=== PATIENT | male | born 1980 | race Caucasian/White ===

== ENCOUNTER 2020-03-25 06:00 | Outpatient (RCR) | payer MEDICARE, SELFPAY | END 2020-04-24 23:59 | disposition home or self-care (01) | LOC: MOT 06:00 | PROVIDERS: PCP Family Medicine; Referring Provider Family Medicine; Visit Provider Family Medicine | DX: G82.20 Paraplegia, unspecified (principal) | CPT/HCPCS: 97166 ==

== ENCOUNTER 2021-05-01 17:58 | Observation (INO) | payer MEDICARE, SELFPAY ==
[2021-05-01] VITALS (8 sets, daily range): BP systolic 109–162; BP diastolic 78–92; PULSE 99–125; RESP 16–26; TEMP 36.6; O2SAT 98–100; BMI 27.3
--- NOTE | 2021-05-01 18:55 | W.ED.COVID ---
Documented by User: [email or web address] Tee 05/01/21 23:30 HPI - COVID General: Chief Complaint: COVID symptoms Stated Complaint: covid expousre, feeling aweful Time Seen by Provider: 05/01/21 18:18 Source: patient Mode of arrival: wheelchair Limitations: no limitations Triage information: No fever, cough or shortness of breath. Exposure to COVID + person last 14 days History of Present Illness: HPI Narrative: Patient is a very nice 41-year-old male who presents to the ED today with concerns of COVID exposure and symptoms. Patient tells me about 2 weeks ago he was around his ex- who was positive for COVID and symptomatic. He states 2 days later he began having symptoms of nasal congestion, rhinorrhea, mild cough, and low-grade fevers. Patient states he felt like he was starting to improve but over the last 48 hours has felt significantly worse. He reports he is on day 11 of symptoms. He is complaining of severe muscle aches. He has had severe nausea and dry heaving. He states anytime he tries to eat he subsequently has diarrhea. Patient is a paraplegic and states it is obviously difficult to get to and from the bathroom thus he has stopped eating to help prevent the diarrhea. He feels very weak and dehydrated. Patient has noticed he feels short of breath with minimal exertion. He does not complain of any shortness of breath at rest. Patient is a type I diabetic. History of HTN. MD complaint: reported COVID exposure and has COVID symptoms Prior covid testing: no COVID 19 common symptoms: positive fever(s), non-productive cough, dyspnea (with exertion), body aches, nasal congestion, nausea, vomiting (dry heaving) and diarrhea; negative chills, headache(s) or throat pain COVID 19 other sytmptoms: negative chest pain Onset (ago): day(s) Severity: moderate Pertinent comorbid conditions: diabetes and hypertension COVID Results: SARS-CoV-2 Antigen (Rapid) Negative (Negative) 05/01/21 19:07 05/01/21 Nasal/Oral Coronavirus 2019 PCR Pending 05/01/21 21:25 05/01/21 Review of Systems Const: Reports: fever(s), body aches and change in appetite; Denies: chills Eyes: Denies: change in vision ENMT: Reports: nasal congestion; Denies: throat pain, odynophagia or ear or mastoid pain Card: Reports: dyspnea on exertion; Denies: chest pain, palpitations, irregular heart rhythm, edema, swelling of feet/ankles, lightheadedness, syncope or pre-syncope Resp: Reports: dyspnea (with exertion) and non-productive cough; Denies: wheezing or hemoptysis GI: Reports: nausea, vomiting (dry heaving) and diarrhea; Denies: abdominal pain Musc: Reports: other (reports muscle pains); Denies: neck pain, back pain, extremity pain or joint pain Skin/Breast: Denies: rash Neuro: Denies: headache(s) PFSH ED PFSH: Medical History Aortic arch dissection Physical Exam Const: COMMON NORMALS: no acute distress, patient oriented x3, no limitations and alert GENERAL APPEARANCE: cooperative ORIENTATION/CONSCIOUSNESS: Yes awake, Yes oriented to person, Yes oriented to place and Yes oriented to time HENMT: COMMON NORMALS: normocephalic and atraumatic HEAD & SCALP: normocephalic and atraumatic Resp: COMMON NORMALS: normal respiratory effort and clear to auscultation bilaterally AUSCULTATION: clear to auscultation bilaterally Cardio: COMMON NORMALS: regular rhythm RATE: tachycardic RHYTHM: regular rhythm Neuro: RIK COMA SCALE: document GCS findings [place] coma scale eye opening: Spontaneous [place] coma scale verbal response: Orientated Rik coma scale motor response: Obey commands Rik coma scale total score: 15 COMMON NORMALS: patient oriented x3 SENSORIUM/ORIENTATION: Yes alert, Yes oriented to person, Yes oriented to place and Yes oriented to time OTHER: LE paraplegic Skin: COMMON NORMALS: no rashes or lesions noted GENERAL SKIN EXAM: no rashes or lesions noted TRAUMA: no lacerations or abrasions Course Consultations: Consultation #1: Dr. Sena-acceptsophie admission to ICU Vital Signs: Vital signs: Vital Signs Temperature 97.9 F 05/01/21 18:05 Pulse Rate 112 H 05/01/21 19:14 Respiratory Rate 18 05/01/21 20:50 Blood Pressure 143/92 05/01/21 19:11 Pulse Oximetry 100 05/01/21 19:11 MDM - COVID MDM Narrative: Medical decision making narrative: Patient's rapid is COVID but this is not surprising given he is on day 11 of symptoms. PCR pending. I still suspect this given his positive exposure. CXR shows bibasilar pneumonitis. CTA (ordered secondary to elevated d dimer is negative for PE but appearance is suspicious for COVID infection). Unfortunately secondary to the vomiting/diarrhea/not eating he is now in DKA. Glucose 190s-230s. Bicarb of 11. Gap of 30.5. pH of 7.2. Positive serum ketones. Will place on insulin drip/fluids and will admit to hospitalist. Lab Data: Labs: Lab Results 05/01/21 05/01/21 05/01/21 19:07 19:07 19:07 WBC 3.8 10^3/uL L 10^ 3/uL (4.0-10.0) RBC 5.11 10^6/uL 10^6 /uL (4.1-5.3) Hgb 16.2 g/dL g/dL (11.7-16.6) Hct 48.1 % % (42.0-52.0) MCV 94.1 fl H fl (80-94) MCH 31.7 pg pg (28.0-34.0) MCHC 33.7 g/dL g/dL (30.0-36.0) RDW 13.1 % % (12.1-15.1) Plt Count 167 10^3/cmm 10^3 /cmm (130-400) MPV 10.5 fL H fL (7.4-10.4) Neut % (Auto) 72.1 % % Lymph % (Auto) 18.8 % % Jewell % (Auto) 8.5 % % Eos % (Auto) 0.3 % % Baso % (Auto) 0.0 % % Neut # (Auto) 2.73 10^3/uL 10^3 /uL (1.8-7.7) Lymph # (Auto) 0.7 10^3/uL L 10^ 3/uL (0.8-4.8) Jewell # (Auto) 0.3 10^3/uL 10^3/ uL (0.2-0.9) Eos # (Auto) 0.0 10^3/uL 10^3/ uL (0.0-0.8) Baso # (Auto) 0.0 10^3/uL 10^3/ uL (0.0-0.1) Nucleated RBC % (a uto) 0 % % Nucleated RBCs # 0.0 /100WBC /100W BC D-Dimer 1.01 ug/mIFEU H u g/mIFEU (0-0.59) Specimen Type Sample Site ABG pH ABG pCO2 ABG pO2 ABG HCO3 ABG O2 Saturation ABG Base Excess Blane Test A-a O2 Gradient Hematocrit Hgb O2 Saturation Carboxyhemoglobin Methemoglobin Total Hemoglobin Ionized Calcium O2 Delivery Device FiO2 Senior Business Development Manager ID Sodium 134 mmol/L L mmol /L (136-145) Potassium 4.5 mmol/L mmol/L (3.5-5.1) Chloride 97 mmol/L L mmol/ L (98-107) Carbon Dioxide 11 mmol/L L mmol/ L (22-29) Anion Gap 30.5 H (5-19) BUN 11 mg/dL mg/dL (6-20) Creatinine 0.8 mg/dL mg/dL (0.7-1.2) GFR Calculation 107.1 mL/min mL/m in (90-130) Glucose 194 mg/dL H mg/dL (65-115) POC Glucose Calculated Osmolal ity 283 mOsm/kg L mOs m/kg (285-295) Lactic Acid Calcium 9.4 mg/dL mg/dL (8.5-10.5) Total Bilirubin 0.7 mg/dL mg/dL (0.15-1.2) AST 18 U/L U/L (0-40) ALT 15 U/L U/L (0-41) Alkaline Phosphata se 84 IU/L IU/L (40-130) Creatine Kinase 85 U/L U/L (39-308) C-Reactive Protein 6.0 mg/L H mg/L (0.0-4.9) Total Protein 8.0 g/dL g/dL (6.6-8.7) Albumin 4.6 g/dL g/dL (3.5-5.2) Globulin 3.4 g/dL g/dL (1.3-4.6) Procalcitonin 0.10 ng/mL ng/mL (0-0.5) Serum Ketones SARS-CoV-2 Ag (Rap id) 05/01/21 05/01/21 05/01/21 19:07 19:07 19:07 WBC RBC Hgb Hct MCV MCH MCHC RDW Plt Count MPV Neut % (Auto) Lymph % (Auto) Jewell % (Auto) Eos % (Auto) Baso % (Auto) Neut # (Auto) Lymph # (Auto) Jewell # (Auto) Eos # (Auto) Baso # (Auto) Nucleated RBC % (a uto) Nucleated RBCs # D-Dimer Specimen Type Sample Site ABG pH ABG pCO2 ABG pO2 ABG HCO3 ABG O2 Saturation ABG Base Excess Blane Test A-a O2 Gradient Hematocrit Hgb O2 Saturation Carboxyhemoglobin Methemoglobin Total Hemoglobin Ionized Calcium O2 Delivery Device FiO2 Senior Business Development Manager ID Sodium Potassium Chloride Carbon Dioxide Anion Gap BUN Creatinine GFR Calculation Glucose POC Glucose Calculated Osmolal ity Lactic Acid 1.1 mmol/L mmol/L (0.5-2.2) Calcium Total Bilirubin AST ALT Alkaline Phosphata se Creatine Kinase C-Reactive Protein Total Protein Albumin Globulin Procalcitonin Serum Ketones Positive H (Negative) SARS-CoV-2 Ag (Rap id) Negative (Negative) 05/01/21 05/01/21 20:02 21:36 WBC RBC Hgb Hct MCV MCH MCHC RDW Plt Count MPV Neut % (Auto) Lymph % (Auto) Jewell % (Auto) Eos % (Auto) Baso % (Auto) Neut # (Auto) Lymph # (Auto) Jewell # (Auto) Eos # (Auto) Baso # (Auto) Nucleated RBC % (a uto) Nucleated RBCs # D-Dimer Specimen Type Arterial Sample Site Radial, right ABG pH 7.22 L (7.35-7.45) ABG pCO2 19.8 mmHg L* mmHg (35-45) ABG pO2 109.0 mmHg H mmHg (80.0-100.0) ABG HCO3 8.0 mmol/L L mmol /L (22-26) ABG O2 Saturation 97.9 ABG Base Excess -17.4 mmol/L L mm ol/L (-2.0-2.0) Blane Test Pos A-a O2 Gradient 1.9 mmHg L mmHg (5-10) Hematocrit 49.6 % % (42-52) Hgb O2 Saturation 96.9 % % (95-100) Carboxyhemoglobin 0.6 %THgb %THgb (0.4-20.1) Methemoglobin 0.5 % % (0.4-1.5) Total Hemoglobin 16.2 g/dL g/dL (14-18) Ionized Calcium 1.2 mmol/L mmol/L (1.1-1.4) O2 Delivery Device Room air FiO2 21.0 % % Senior Business Development Manager ID [email or web address] Sodium 140.0 mmol/L mmol /L (131-143) Potassium 4.3 mmol/L mmol/L (3.5-5.0) Chloride Carbon Dioxide Anion Gap BUN Creatinine GFR Calculation Glucose 231.0 mg/dL H mg/ dL (70-115) POC Glucose 207 mg/dL H mg/dL (70-110) Calculated Osmolal ity Lactic Acid Calcium Total Bilirubin AST ALT Alkaline Phosphata se Creatine Kinase C-Reactive Protein Total Protein Albumin Globulin Procalcitonin Serum Ketones SARS-CoV-2 Ag (Rap id) Imaging Data: CXR: Radiologist's impression: [employer] [address] XRay Report Signed Patient: Carl Boudreaux Unit #: [id number] : 1980 Age/Sex: 41 / M ADM Date: 05/01/21 Loc: ER Room/Bed: Attending Dr: Ordering Provider/Ordering MD: Evonne Méndez Date of Service: 05/01/21 Procedure(s): XR chest 1V portable [id number] Accession Number(s): [id number] Report Number: [id number] PROCEDURE INFORMATION: Exam: XR Chest Exam date and time: 05/01/2021 6:54 PM Age: 41 years old Clinical indication: Cough and shortness of breath; Additional info: Covid symptoms TECHNIQUE: Imaging protocol: XR of the chest. Views: 1 view. Total images: 1 COMPARISON: No relevant prior studies available. FINDINGS: Lungs: Patches of ground-glass interstitial lung disease in the bilateral lower lobes, right lung more involved than left, raising suspicion for active interstitial pneumonitis. No visible consolidated alveolar airspace disease. Azygos lobe which is a normal anatomical variant. Pleural spaces: No pleural effusion. No pneumothorax. Heart/Mediastinum: Cardiac structures and configuration with mediastinal surgical clips. Cardiac size within normal limits. Bones/joints: Scoliosis. XR/XR chest 1V portable [id number] IMPRESSION: Bibasilar pneumonitis, right lung slightly more involved than left. Radiation Dose CTDIVOL = (mGy): DLP = (mGy-cm) Dictated By: Julian Nolan Signed By: Julian Nolan Signed Date/Time: 05/01/211949 DD/ 53 CTA Chest: Radiologist's impression: [address] [id number] Scan ReportSigned Patient: Carl Boudreaux #: [id number]: 1980Acct#:[id number]/Sex: 41 / MADM Date: 05/01/21Loc: ERRoom/Bed:Attending Dr: Ordering Provider/Ordering MD: Evonne Méndez Date of Service: 05/01/21 Procedure(s): CT angio chest PE prot [id number] Accession Number(s): [id number] Report Number: [id number] PROCEDURE INFORMATION: Exam: CTA Chest With Contrast Exam date and time: 05/01/2021 8:02 PM Age: 41 years old Clinical indication: Abnormal findings; Abnormal diagnostic tests; Elevated d-dimer; Shortness of breath; Prior surgery; Surgery date: 6+ months; Surgery type: Aorta; Patient HX: ? Covid exposure tachy w elev d-dimer; Additional info: Covid symptoms; Tachycardia; Elevated d dimer TECHNIQUE: Imaging protocol: Computed tomographic angiography of the chest with contrast. 3D rendering (Not supervised by radiologist): MIP and/or 3D reconstructed images were created by the technologist. Total images: 842 Radiation optimization: All CT scans at this facility use at least one of these dose optimization techniques: automated exposure control; mA and/or kV adjustment per patient size (includes targeted exams where dose is matched to clinical indication); or iterative reconstruction. Contrast material: OMNI 350; Contrast volume: 63 ml; Contrast route: INTRAVENOUS (IV); COMPARISON: CR XR chest 1V portable [id number] 05/01/2021 8:13 PM RADIATION DOSE METRICS: Total DLP (mGy-cm): 541.2 FINDINGS: Pulmonary arteries: No visible evidence of pulmonary embolism/pulmonary arterial thrombus. Aorta: Mild fusiform aneurysmal dilatation of the ascending thoracic aorta. No visible acute intimal flap or dissection. Thin chronic longitudinal intimal flap thoracic aortic arch. Numerous surgical clips surround the aortic arch. Lungs: Bilateral, predominantly bilateral lower lobe peripheral, patches of ground-glass interstitial lung disease opacification consistent with active interstitial pneumonitis. Overall constellation of findings would be consistent with Covid-19 pneumonitis. Azygos lobe which is a normal anatomical variant. Pleural spaces: No pneumothorax. No pleural effusion. Heart: Cardiac size within normal limits. No visible pericardial effusion. No visible coronary artery disease. Lymph nodes: No definitive evidence of active mediastinal or hilar lymphadenopathy. Bones/joints: No visible active or acute osseous pathology. Scoliotic curvature of the spine. Old left rib fractures. Soft tissues: Unremarkable. CT/CT angio chest PE protcl [id number] IMPRESSION: 1. No visible evidence of pulmonary embolism/pulmonary arterial thrombus. 2. Bilateral, predominantly bilateral lower lobe peripheral, patches of ground-glass interstitial lung disease opacification consistent with active interstitial pneumonitis. Overall constellation of findings would be consistent with Covid-19 pneumonitis. Radiation Dose CTDIVOL = (mGy): DLP = 541.2 (mGy-cm) Dictated By:Elinor Nolan By:Elinor Nolan Date/Time:05/01/21 2154DD/ 01 COVID Results: SARS-CoV-2 Antigen (Rapid) Negative (Negative) 05/01/21 19:07 05/01/21 Nasal/Oral Coronavirus 2019 PCR Pending 05/01/21 21:25 05/01/21 Discharge Plan Discharge Patient Disposition: Admitted As Inpatient Admit Provider: Eliezer Villalobos Clinical Impression: Suspected severe acute respiratory syndrome coronavirus 2 (SARS-CoV-2) infection, Suspected COVID-19 virus infection DKA (diabetic ketoacidosis) Qualifiers: Diabetes mellitus type: type 1 Diabetes mellitus complication detail: without coma Qualified Code(s): E10.10 - Type 1 diabetes mellitus with ketoacidosis without coma Condition: Stable Coding Level of Care Code ED Stonework Supervisor for Chg Fwd Exam Detailed Documented by User: Jonah Pham DO Elvis 05/01/21 23:14 HPI - COVID General: Chief Complaint: COVID symptoms Stated Complaint: covid expousre, feeling aweful Time Seen by Provider: 05/01/21 18:18 COVID Results: SARS-CoV-2 Antigen (Rapid) Negative (Negative) 05/01/21 19:07 05/01/21 Nasal/Oral Coronavirus 2019 PCR Pending 05/01/21 21:25 05/01/21 [facility] ED PFSH: Medical History Aortic arch dissection Course Vital Signs: Vital signs: Vital Signs Temperature 97.9 F 05/01/21 18:05 Pulse Rate 112 H 05/01/21 19:14 Respiratory Rate 18 05/01/21 20:50 Blood Pressure 143/92 05/01/21 19:11 Pulse Oximetry 100 05/01/21 19:11 MDM - COVID MDM Narrative: Medical decision making narrative: This patient was originally seen by Mrs. Menaton?TAO Sloan. I agree with her history, evaluation, and treatment. This patient has diabetic ketoacidosis and is quite dry. He likely has COVID-19 as well, although his respiratory status is not significantly affected. He will go to the ICU on insulin drip with fluid resuscitation. Lab Data: Labs: Lab Results 05/01/21 05/01/21 05/01/21 19:07 19:07 19:07 WBC 3.8 10^3/uL L 10^ 3/uL (4.0-10.0) RBC 5.11 10^6/uL 10^6 /uL (4.1-5.3) Hgb 16.2 g/dL g/dL (11.7-16.6) Hct 48.1 % % (42.0-52.0) MCV 94.1 fl H fl (80-94) MCH 31.7 pg pg (28.0-34.0) MCHC 33.7 g/dL g/dL (30.0-36.0) RDW 13.1 % % (12.1-15.1) Plt Count 167 10^3/cmm 10^3 /cmm (130-400) MPV 10.5 fL H fL (7.4-10.4) Neut % (Auto) 72.1 % % Lymph % (Auto) 18.8 % % Jewell % (Auto) 8.5 % % Eos % (Auto) 0.3 % % Baso % (Auto) 0.0 % % Neut # (Auto) 2.73 10^3/uL 10^3 /uL (1.8-7.7) Lymph # (Auto) 0.7 10^3/uL L 10^ 3/uL (0.8-4.8) Jewell # (Auto) 0.3 10^3/uL 10^3/ uL (0.2-0.9) Eos # (Auto) 0.0 10^3/uL 10^3/ uL (0.0-0.8) Baso # (Auto) 0.0 10^3/uL 10^3/ uL (0.0-0.1) Nucleated RBC % (a uto) 0 % % Nucleated RBCs # 0.0 /100WBC /100W BC D-Dimer 1.01 ug/mIFEU H u g/mIFEU (0-0.59) Specimen Type Sample Site ABG pH ABG pCO2 ABG pO2 ABG HCO3 ABG O2 Saturation ABG Base Excess Blane Test A-a O2 Gradient Hematocrit Hgb O2 Saturation Carboxyhemoglobin Methemoglobin Total Hemoglobin Ionized Calcium O2 Delivery Device FiO2 Senior Business Development Manager ID Sodium 134 mmol/L L mmol /L (136-145) Potassium 4.5 mmol/L mmol/L (3.5-5.1) Chloride 97 mmol/L L mmol/ L (98-107) Carbon Dioxide 11 mmol/L L mmol/ L (22-29) Anion Gap 30.5 H (5-19) BUN 11 mg/dL mg/dL (6-20) Creatinine 0.8 mg/dL mg/dL (0.7-1.2) GFR Calculation 107.1 mL/min mL/m in (90-130) Glucose 194 mg/dL H mg/dL (65-115) POC Glucose Calculated Osmolal ity 283 mOsm/kg L mOs m/kg (285-295) Lactic Acid Calcium 9.4 mg/dL mg/dL (8.5-10.5) Total Bilirubin 0.7 mg/dL mg/dL (0.15-1.2) AST 18 U/L U/L (0-40) ALT 15 U/L U/L (0-41) Alkaline Phosphata se 84 IU/L IU/L (40-130) Creatine Kinase 85 U/L U/L (39-308) C-Reactive Protein 6.0 mg/L H mg/L (0.0-4.9) Total Protein 8.0 g/dL g/dL (6.6-8.7) Albumin 4.6 g/dL g/dL (3.5-5.2) Globulin 3.4 g/dL g/dL (1.3-4.6) Procalcitonin 0.10 ng/mL ng/mL (0-0.5) Serum Ketones SARS-CoV-2 Ag (Rap id) 05/01/21 05/01/21 05/01/21 19:07 19:07 19:07 WBC RBC Hgb Hct MCV MCH MCHC RDW Plt Count MPV Neut % (Auto) Lymph % (Auto) Jewell % (Auto) Eos % (Auto) Baso % (Auto) Neut # (Auto) Lymph # (Auto) Jewell # (Auto) Eos # (Auto) Baso # (Auto) Nucleated RBC % (a uto) Nucleated RBCs # D-Dimer Specimen Type Sample Site ABG pH ABG pCO2 ABG pO2 ABG HCO3 ABG O2 Saturation ABG Base Excess Blane Test A-a O2 Gradient Hematocrit Hgb O2 Saturation Carboxyhemoglobin Methemoglobin Total Hemoglobin Ionized Calcium O2 Delivery Device FiO2 Senior Business Development Manager ID Sodium Potassium Chloride Carbon Dioxide Anion Gap BUN Creatinine GFR Calculation Glucose POC Glucose Calculated Osmolal ity Lactic Acid 1.1 mmol/L mmol/L (0.5-2.2) Calcium Total Bilirubin AST ALT Alkaline Phosphata se Creatine Kinase C-Reactive Protein Total Protein Albumin Globulin Procalcitonin Serum Ketones Positive H (Negative) SARS-CoV-2 Ag (Rap id) Negative (Negative) 05/01/21 05/01/21 20:02 21:36 WBC RBC Hgb Hct MCV MCH MCHC RDW Plt Count MPV Neut % (Auto) Lymph % (Auto) Jewell % (Auto) Eos % (Auto) Baso % (Auto) Neut # (Auto) Lymph # (Auto) Jewell # (Auto) Eos # (Auto) Baso # (Auto) Nucleated RBC % (a uto) Nucleated RBCs # D-Dimer Specimen Type Arterial Sample Site Radial, right ABG pH 7.22 L (7.35-7.45) ABG pCO2 19.8 mmHg L* mmHg (35-45) ABG pO2 109.0 mmHg H mmHg (80.0-100.0) ABG HCO3 8.0 mmol/L L mmol /L (22-26) ABG O2 Saturation 97.9 ABG Base Excess -17.4 mmol/L L mm ol/L (-2.0-2.0) Blane Test Pos A-a O2 Gradient 1.9 mmHg L mmHg (5-10) Hematocrit 49.6 % % (42-52) Hgb O2 Saturation 96.9 % % (95-100) Carboxyhemoglobin 0.6 %THgb %THgb (0.4-20.1) Methemoglobin 0.5 % % (0.4-1.5) Total Hemoglobin 16.2 g/dL g/dL (14-18) Ionized Calcium 1.2 mmol/L mmol/L (1.1-1.4) O2 Delivery Device Room air FiO2 21.0 % % Senior Business Development Manager ID [email or web address] Sodium 140.0 mmol/L mmol /L (131-143) Potassium 4.3 mmol/L mmol/L (3.5-5.0) Chloride Carbon Dioxide Anion Gap BUN Creatinine GFR Calculation Glucose 231.0 mg/dL H mg/ dL (70-115) POC Glucose 207 mg/dL H mg/dL (70-110) Calculated Osmolal ity Lactic Acid Calcium Total Bilirubin AST ALT Alkaline Phosphata se Creatine Kinase C-Reactive Protein Total Protein Albumin Globulin Procalcitonin Serum Ketones SARS-CoV-2 Ag (Rap id) COVID Results: SARS-CoV-2 Antigen (Rapid) Negative (Negative) 05/01/21 19:07 05/01/21 Nasal/Oral Coronavirus 2019 PCR Pending 05/01/21 21:25 05/01/21 Discharge Plan Discharge Patient Disposition: Admitted As Inpatient Admit Provider: Eliezer Villalobos Clinical Impression: Suspected severe acute respiratory syndrome coronavirus 2 (SARS-CoV-2) infection, Suspected COVID-19 virus infection DKA (diabetic ketoacidosis) Qualifiers: Diabetes mellitus type: type 1 Diabetes mellitus complication detail: without coma Qualified Code(s): E10.10 - Type 1 diabetes mellitus with ketoacidosis without coma Condition: Stable Coding Level of Care Code ED Stonework Supervisor for g Fwd Exam Detailed
--- NOTE | 2021-05-01 19:24 | ECG_ITS ---
[facility] Test Date: 2021-05-01 Pat Name: Carl Boudreaux Department: Room: Gender: Male Transfer Clerk: : 1980 Requested By: Evonne Méndez Order Number: [id number] MD: Matteo Arenas M.D. Measurements Intervals [place] Rate: 116 P: 72 [place]: 134 QRS: -1 QRSD: 81 T: 72 QT: 341 QTc: 475 Interpretive Statements SINUS TACHYCARDIA POSSIBLE RIGHT ATRIAL ENLARGEMENT [0.25mV P-WAVE] LEFT ATRIAL ENLARGEMENT [-0.15mV P-WAVE IN V1/V2] POSSIBLE RIGHT VENTRICULAR CONDUCTION DELAY [RSR (QR) IN V1/V2] NONSPECIFIC ST & T-WAVE ABNORMALITY No previous ECG available for comparison Electronically Signed On 05-01-2021 21:58:29 ANIMAL CARE SUPERVISOR by Matteo Arenas M.D. [email or web address]
[2021-05-01 19:27] LABS: Eosinophils % 0.3 %; Hematocrit 48.1 % (42.0-52.0); Hemoglobin 16.2 g/dL (11.7-16.6); Lymphocytes # 0.7 10^3/uL (0.8-4.8); Lymphocytes % 18.8 %; Mean Corpuscular HGB Conc 33.7 g/dL (30.0-36.0); Mean Corpuscular Hemoglobin 31.7 pg (28.0-34.0); Mean Corpuscular Volume 94.1 fl (80-94); Mean Platelet Volume 10.5 fL (7.4-10.4); Monocytes # 0.3 10^3/uL (0.2-0.9); Monocytes % 8.5 %; Neutrophils # 2.73 10^3/uL (1.8-7.7); Neutrophils % 72.1 %; Nucleated Red Blood Cells % 0 %; Platelet Count 167 10^3/cmm (130-400); Red Blood Count 5.11 10^6/uL (4.1-5.3); Red Cell Distribution Width 13.1 % (12.1-15.1); White Blood Count 3.8 10^3/uL (4.0-10.0)
[2021-05-01 19:41] LABS: D Dimer 1.01 ug/mIFEU (0-0.59)
[2021-05-01 19:46] LABS: Lactic Sepsis W/Reflex 1.1 mmol/L (0.5-2.2)
[2021-05-01 19:47] LABS: Alanine Aminotransferase 15 U/L (0-41); Albumin Level 4.6 g/dL (3.5-5.2); Alkaline Phosphatase 84 IU/L (40-130); Anion Gap 30.5 (5-19); Aspartate Amino Transferase 18 U/L (0-40); Blood Urea Nitrogen 11 mg/dL (6-20); Calcium 9.4 mg/dL (8.5-10.5); Carbon Dioxide 11 mmol/L (22-29); Chloride 97 mmol/L (98-107); Creatine Phosphokinase 85 U/L (39-308); Globulin 3.4 g/dL (1.3-4.6); Glomerular Filtration Rate 107.1 mL/min (90-130); Glucose 194 mg/dL (65-115); Osmolality Calculated 283 mOsm/kg (285-295); Potassium 4.5 mmol/L (3.5-5.1); Sodium 134 mmol/L (136-145); Total Bilirubin 0.7 mg/dL (0.15-1.2)
[2021-05-01 19:51] LABS: SARS Covid-2 Antigen Negative (Negative)
--- NOTE | 2021-05-01 20:02 | CTR_ITS ---
PROCEDURE INFORMATION: Exam: CTA Chest With Contrast Exam date and time: 05/01/2021 8:02 PM Age: 41 years old Clinical indication: Abnormal findings; Abnormal diagnostic tests; Elevated d-dimer; Shortness of breath; Prior surgery; Surgery date: 6+ months; Surgery type: Aorta; Patient HX: ? Covid exposure tachy w elev d-dimer; Additional info: Covid symptoms; Tachycardia; Elevated d dimer TECHNIQUE: Imaging protocol: Computed tomographic angiography of the chest with contrast. 3D rendering (Not supervised by radiologist): MIP and/or 3D reconstructed images were created by the technologist. Total images: 842 Radiation optimization: All CT scans at this facility use at least one of these dose optimization techniques: automated exposure control; mA and/or kV adjustment per patient size (includes targeted exams where dose is matched to clinical indication); or iterative reconstruction. Contrast material: OMNI 350; Contrast volume: 63 ml; Contrast route: INTRAVENOUS (IV); COMPARISON: CR XR chest 1V portable [id number] 05/01/2021 8:13 PM RADIATION DOSE METRICS: Total DLP (mGy-cm): 541.2 FINDINGS: Pulmonary arteries: No visible evidence of pulmonary embolism/pulmonary arterial thrombus. Aorta: Mild fusiform aneurysmal dilatation of the ascending thoracic aorta. No visible acute intimal flap or dissection. Thin chronic longitudinal intimal flap thoracic aortic arch. Numerous surgical clips surround the aortic arch. Lungs: Bilateral, predominantly bilateral lower lobe peripheral, patches of ground-glass interstitial lung disease opacification consistent with active interstitial pneumonitis. Overall constellation of findings would be consistent with Covid-19 pneumonitis. Azygos lobe which is a normal anatomical variant. Pleural spaces: No pneumothorax. No pleural effusion. Heart: Cardiac size within normal limits. No visible pericardial effusion. No visible coronary artery disease. Lymph nodes: No definitive evidence of active mediastinal or hilar lymphadenopathy. Bones/joints: No visible active or acute osseous pathology. Scoliotic curvature of the spine. Old left rib fractures. Soft tissues: Unremarkable. CT/CT angio chest PE protcl [id number] IMPRESSION: 1. No visible evidence of pulmonary embolism/pulmonary arterial thrombus. 2. Bilateral, predominantly bilateral lower lobe peripheral, patches of ground-glass interstitial lung disease opacification consistent with active interstitial pneumonitis. Overall constellation of findings would be consistent with Covid-19 pneumonitis. Radiation Dose CTDIVOL = (mGy): DLP = 541.2 (mGy-cm)
[2021-05-01 20:27] LABS: Ketone (Acetest) Serum Positive (Negative)
[2021-05-01] MEDS: morphine 4 mg/mL SDV 1 mL IVP (20:50)
[2021-05-01] MEDS: ondansetron 2 mg/ML SDV 2 mL 4 MG IVP (20:52)
[2021-05-01] MEDS: sodium chloride 0.9% 1,000 ML 999 ML IV (20:52)
[2021-05-01 20:57] LABS: ABG PH Result 7.22 (7.35-7.45); Alveolar-Arterial Oxygen Gradi 1.9 mmHg (5-10); Arterial Blood Gas Hematocrit 49.6 % (42-52); Base Excess ABG -17.4 mmol/L (-2.0-2.0); Blood Gas Allen Test Pos; Blood Gas Sample Site Radial, right; Blood Gas Sample Type Arterial; Carboxyhemoglobin 0.6 %THgb (0.4-20.1); HGB O2 Sat 96.9 % (95-100); Ionized Calcium Level - ABG 1.2 mmol/L (1.1-1.4); Methemoglobin 0.5 % (0.4-1.5); Oxygen Device ROOM AIR; Oxygen Saturation ABG 97.9; Potassium Level - ABG 4.3 mmol/L (3.5-5.0); Total Hemoglobin 16.2 g/dL (14-18)
[2021-05-01 20:58] LABS: ABG PCO2 19.8 mmHg (35-45)
[2021-05-01] MEDS: iohexol 350 mg/mL 100 mL Btl IV (21:36)
[2021-05-01 21:40] LABS: Glucose Point of Care 207 mg/dL (70-110)
[2021-05-01] MEDS: insulin regular-human 250 UNIT in sodium chloride 0.9% 250 ML 5.1 UNIT IV (21:53)
--- NOTE | 2021-05-01 22:33 | PM.HP ---
Providers/Chief Complaint Admitting Physician: Eliezer Villalobos Primary Care Provider: Sayra Kuo APN Chief Complaint: covid expousre, feeling aweful History of Present Illness Carl Boudreaux is a 41 year old male with past medical history of lower quadriplegia, type 1 diabetes, hypertension who is presenting to emergency room with complaints of diarrhea and not feeling well. His symptoms started about 11 days ago. He thinks that he was exposed to Covid from a family member prior to that. Initially he had some upper respiratory symptoms, runny nose, congestion which eventually resolved. However he developed nausea and diarrhea. He states that he has watery stools after each meal. Since his mobility is limited he was unable to take care of himself properly. In order to minimize diarrhea he stopped eating. He did not eat for last 3 days and did not use his long-acting insulin. Here he was found to have DKA. He denies any chest pain, shortness of breath, cough, fever or chills. No vomiting. Denies abdominal pain. Denies similar episodes in the past. Review of Systems General: Reports: 10 or more systems reviewed and unremarkable except in HPI and below PFSH Acute PFSH: Medical History Aortic arch dissection Vitals/I&O/Wt Last Vital Signs Temp 97.9 F 05/01/21 18:05 Pulse 112 H 05/01/21 19:14 Resp 18 05/01/21 20:50 BP 143/92 05/01/21 19:11 Pulse Ox 100 05/01/21 19:11 Weight last 48 hrs Weight 81.647 kg Physical Exam Narrative: EXAM NARRATIVE: The patient is awake alert oriented. No acute distress. Mood and affect are appropriate. Responses are adequate. Skin is warm and dry. Dry mucous membranes Eyes PERRL, extraocular muscles are intact Normal speech Neck supple. No JVD Lungs are clear to station bilaterally. No wheezes or crackles Heart S1, S2, regular Abdomen is soft, nontender, bowel sounds are present Extremities trace edema. No cyanosis or calf tenderness bilaterally Weakness in the lower extremities is present. Data : 05/01/21 19:07 05/01/21 19:07 Other Labs: Laboratory Results WBC 3.8 10^3/uL (4.0-10.0) L 05/01/21 19:07 RBC 5.11 10^6/uL (4.1-5.3) 05/01/21 19:07 Hgb 16.2 g/dL (11.7-16.6) 05/01/21 19:07 Hct 48.1 % (42.0-52.0) 05/01/21 19:07 MCV 94.1 fl (80-94) H 05/01/21 19:07 MCH 31.7 pg (28.0-34.0) 05/01/21 19:07 MCHC 33.7 g/dL (30.0-36.0) 05/01/21 19: RDW 13.1 % (12.1-15.1) 05/01/21 19: Plt Count 167 10^3/cmm (130-400) 05/01/21 19:07 MPV 10.5 fL (7.4-10.4) H 05/01/21 19:07 Neut % (Auto) 72.1 % 05/01/21 19:07 Lymph % (Auto) 18.8 % 05/01/21 19:07 [place] % (Auto) 8.5 % 05/01/21 19:07 Eos % (Auto) 0.3 % 05/01/21 19: Baso % (Auto) 0.0 % 05/01/21 19: Neut # (Auto) 2.73 10^3/uL (1.8-7.7) 05/01/21 19:07 Lymph # (Auto) 0.7 10^3/uL (0.8-4.8) L 05/01/21 19:07 [place] # (Auto) 0.3 10^3/uL (0.2-0.9) 05/01/21 19:07 Eos # (Auto) 0.0 10^3/uL (0.0-0.8) 05/01/21 19: Baso # (Auto) 0.0 10^3/uL (0.0-0.1) 05/01/21 19:07 Nucleated RBC % (auto) 0 % 05/01/21 19: Nucleated RBCs # 0.0 /100WBC 05/01/21 19: D-Dimer 1.01 ug/mIFEU (0-0.59) H 05/01/21 19:07 Specimen Type Arterial 05/01/21 20:02 Sample Site Radial, right 05/01/21 20:02 ABG pH 7.22 (7.35-7.45) L 05/01/21 20:02 ABG pCO2 19.8 mmHg (35-45) L* 05/01/21 20:02 ABG pO2 109.0 mmHg (80.0-100.0) H 05/01/21 20:02 ABG HCO3 8.0 mmol/L (22-26) L 05/01/21 20:02 ABG O2 Saturation 97.9 05/01/21 20:02 ABG Base Excess -17.4 mmol/L (-2.0-2.0) L 05/01/21 20: Blane Test Pos 05/01/21 20:02 A-a O2 Gradient 1.9 mmHg (5-10) L 05/01/21 20:02 Hematocrit 49.6 % (42-52) 05/01/21 20:02 Hgb O2 Saturation 96.9 % (95-100) 05/01/21 20:02 Carboxyhemoglobin 0.6 %THgb (0.4-20.1) 05/01/21 20:02 Methemoglobin 0.5 % (0.4-1.5) 05/01/21 20:02 Total Hemoglobin 16.2 g/dL (14-18) 05/01/21 20:02 Sodium 140.0 mmol/L (131-143) 05/01/21 20:02 Potassium 4.3 mmol/L (3.5-5.0) 05/01/21 20:02 Glucose 231.0 mg/dL (70-115) H 05/01/21 20:02 Ionized Calcium 1.2 mmol/L (1.1-1.4) 05/01/21 20:02 O2 Delivery Device Room air 05/01/21 20:02 FiO2 21.0 % 05/01/21 20:02 Insurance Claim Auditor ID [email or web address] 05/01/21 20:02 Sodium 134 mmol/L (136-145) L 05/01/21 19:07 Potassium 4.5 mmol/L (3.5-5.1) 05/01/21 19:07 Chloride 97 mmol/L (98-107) L 05/01/21 19:07 Carbon Dioxide 11 mmol/L (22-29) L 05/01/21 19:07 Anion Gap 30.5 (5-19) H 05/01/21 19:07 BUN 11 mg/dL (6-20) 05/01/21 19:07 Creatinine 0.8 mg/dL (0.7-1.2) 05/01/21 19:07 GFR Calculation 107.1 mL/min (90-130) 05/01/21 19:07 Glucose 194 mg/dL (65-115) H 05/01/21 19:07 POC Glucose 207 mg/dL (70-110) H 05/01/21 21:36 Calculated Osmolality 283 mOsm/kg (285-295) L 05/01/21 19:07 Lactic Acid 1.1 mmol/L (0.5-2.2) 05/01/21 19:07 Calcium 9.4 mg/dL (8.5-10.5) 05/01/21 19:07 Total Bilirubin 0.7 mg/dL (0.15-1.2) 05/01/21 19:07 AST 18 U/L (0-40) 05/01/21 19:07 ALT 15 U/L (0-41) 05/01/21 19:07 Alkaline Phosphatase 84 IU/L (40-130) 05/01/21 19:07 Creatine Kinase 85 U/L (39-308) 05/01/21 19:07 C-Reactive Protein 6.0 mg/L (0.0-4.9) H 05/01/21 19:07 Total Protein 8.0 g/dL (6.6-8.7) 05/01/21 19:07 Albumin 4.6 g/dL (3.5-5.2) 05/01/21 19:07 Globulin 3.4 g/dL (1.3-4.6) 05/01/21 19:07 Procalcitonin 0.10 ng/mL (0-0.5) 05/01/21 19:07 Serum Ketones Positive (Negative) H 05/01/21 19:07 SARS-CoV-2 Ag (Rapid) Negative (Negative) 05/01/21 19:07 Impressions Chest X-Ray 05/01/21 18:54 IMPRESSION: Bibasilar pneumonitis, right lung slightly more involved than left. Radiation Dose CTDIVOL = (mGy): DLP = (mGy-cm) Chest CTA 05/01/21 20:02 IMPRESSION: 1. No visible evidence of pulmonary embolism/pulmonary arterial thrombus. 2. Bilateral, predominantly bilateral lower lobe peripheral, patches of ground-glass interstitial lung disease opacification consistent with active interstitial pneumonitis. Overall constellation of findings would be consistent with Covid-19 pneumonitis. Radiation Dose CTDIVOL = (mGy): DLP = 541.2 (mGy-cm) A&P Assessment and plan (1) DKA (diabetic ketoacidosis): Status: Acute Qualifiers: Diabetes mellitus complication detail: without coma Diabetes mellitus type: type 1 Qualified Code(s): E10.10 - Type 1 diabetes mellitus with ketoacidosis without coma (2) Diarrhea: Status: Acute (3) Type I diabetes mellitus: Status: Acute (4) HTN (hypertension): Status: Acute (5) Paraplegia: Status: Acute Additional A&P Information 41 year old male with past medical history of lower quadriplegia, type 1 diabetes, hypertension who is presenting to emergency room with complaints of diarrhea and not feeling well. He has DKA due to stopping long-acting insulin secondary to not being able to eat due to ongoing diarrhea which suspect is due to COVID-19 viral syndrome. Admitting to ICU for DKA protocol. We will adjust the fluids and electrolytes as needed. Insulin drip. COVID-19 exposure. Since he does not have any respiratory symptoms but will not start him on dexamethasone or remdesivir. We will closely monitor him. He will be on isolation. Uncontrolled hypertension. We will resume his home medications. We will add as needed labetalol. DVT prophylaxis. Enoxaparin. CODE STATUS. He wants to be full code. The plan of care was discussed with the patient. He verbalized understanding and agreement. Critical care time spent on this encounter is 45 minutes Attestations Medical Necessity Statement*: Based on my assessment of patient's condition I expect that the patient will spend more than 2 midnights in the hospital to stabilize his DKA, hydrate him and manage his diarrhea Coding Level of Care Code Acute Plumbing Engineer for [place] Porter Diagnoses DKA (diabetic ketoacidosis) E10.10 Diabetes mellitus complication detail: without coma Diabetes mellitus type: type 1 Diarrhea R19.7 Type I diabetes mellitus E10.9 HTN (hypertension) I10 Paraplegia G82.20
[2021-05-01] MEDS: enoxaparin 40 mg/0.4 mL Syringe SUBCUT (23:38)
[2021-05-02] VITALS (80 sets, daily range): BP systolic 109–174; BP diastolic 58–127; PULSE 80–124; RESP 11–25; TEMP 36.7–36.8; O2SAT 97
[2021-05-02 00:01] LABS: Glucose Point of Care 166 mg/dL (70-110)
[2021-05-02 00:28] LABS: Estmated Average Glucose 146; Hemoglobin A1C 6.7 % (4.0-6.0)
[2021-05-02 00:31] LABS: Albumin Level 4.6 g/dL (3.5-5.2); Anion Gap 31.4 (5-19); Blood Urea Nitrogen 11 mg/dL (6-20); Calcium 9.5 mg/dL (8.5-10.5); Carbon Dioxide 10 mmol/L (22-29); Chloride 98 mmol/L (98-107); Glomerular Filtration Rate 93.5 mL/min (90-130); Glucose 184 mg/dL (65-115); Magnesium 1.9 mg/dL (1.7-2.3); Potassium 4.4 mmol/L (3.5-5.1); Sodium 135 mmol/L (136-145)
[2021-05-02] MEDS: dextrose 5%-sod chloride 0.9% 1,000 ML 175 ML IV ×2 (01:17→06:38)
[2021-05-02 01:33] LABS: Glucose Point of Care 137 mg/dL (70-110)
[2021-05-02 02:39] LABS: Glucose Point of Care 138 mg/dL (70-110)
--- NOTE | 2021-05-02 02:55 | PC.ADMIT ---
[id number] [facility] Admission Note: The patient,Carl Boudreaux,41 y/o, was given written information regarding hospital policies, unit procedures and contact persons. Patient's smoking status: . Vital Signs - 8 hr 05/01/21 19:11 05/01/21 19:14 05/01/21 20:50 Temperature Pulse Rate 112 H Respiratory Rate 18 18 Blood Pressure 143/92 Pulse Oximetry 100 05/01/21 23:37 05/01/21 23:50 05/01/21 23:59 Temperature 97.9 F Pulse Rate 99 99 121 H Respiratory Rate 16 16 26 H Blood Pressure 109/78 109/78 Pulse Oximetry 98 98 05/02/21 00:00 05/02/21 00:30 05/02/21 01:00 Temperature Pulse Rate 123 H 104 H 101 H Respiratory Rate 17 21 H 18 Blood Pressure 174/127 151/94 130/86 Pulse Oximetry 05/02/21 01:30 05/02/21 02:00 05/02/21 02:30 Temperature Pulse Rate 105 H 116 H 95 Respiratory Rate 21 H 20 H 16 Blood Pressure 155/99 127/79 156/99 Pulse Oximetry Admit Note Patient admitted to [ICU 06] from [ED] via [STRETCHER]. Covering service notified. Patient presents with [AMS and DKA]. Orders reviewed & will continue to monitor. Patient and/or medical claims representative oriented to environment, equipment, and informed of the following as found in the admission booklet: patient rights & responsibilities, visitor policy, hand and respiratory hygiene practice. Other education includes: [management of insulin gtt and COVID precautions]. Patient verbalized understanding of teaching. Denies pain. All vss and assessments as charted. Will continue to monitor..
[2021-05-02 03:33] LABS: Glucose Point of Care 161 mg/dL (70-110)
[2021-05-02 04:27] LABS: Glucose Point of Care 164 mg/dL (70-110)
[2021-05-02 05:21] LABS: Basophils % 0.3 %; Eosinophils % 0.3 %; Hematocrit 42.1 % (42.0-52.0); Hemoglobin 14.2 g/dL (11.7-16.6); Lymphocytes # 1.1 10^3/uL (0.8-4.8); Lymphocytes % 28.8 %; Mean Corpuscular HGB Conc 33.7 g/dL (30.0-36.0); Mean Corpuscular Hemoglobin 31.3 pg (28.0-34.0); Mean Corpuscular Volume 92.9 fl (80-94); Monocytes # 0.4 10^3/uL (0.2-0.9); Monocytes % 10.9 %; Neutrophils # 2.23 10^3/uL (1.8-7.7); Neutrophils % 59.4 %; Nucleated Red Blood Cells % 0 %; Platelet Count 153 10^3/cmm (130-400); Red Blood Count 4.53 10^6/uL (4.1-5.3); Red Cell Distribution Width 13.2 % (12.1-15.1); White Blood Count 3.8 10^3/uL (4.0-10.0)
[2021-05-02 05:41] LABS: Glucose Point of Care 168 mg/dL (70-110)
[2021-05-02 06:20] LABS: Albumin Level 3.8 g/dL (3.5-5.2); Anion Gap 20.1 (5-19); Blood Urea Nitrogen 8 mg/dL (6-20); Calcium 8.8 mg/dL (8.5-10.5); Carbon Dioxide 16 mmol/L (22-29); Chloride 103 mmol/L (98-107); Glomerular Filtration Rate 149.2 mL/min (90-130); Glucose 162 mg/dL (65-115); Magnesium 1.8 mg/dL (1.7-2.3); Phosphorus 1.6 mg/dL (2.5-4.5); Potassium 4.1 mmol/L (3.5-5.1); Sodium 135 mmol/L (136-145)
[2021-05-02 06:28] LABS: Glucose Point of Care 165 mg/dL (70-110)
[2021-05-02 07:40] LABS: Glucose Point of Care 141 mg/dL (70-110)
[2021-05-02] MEDS: lactated ringers 1,000 ML 100 ML IV ×2 (08:42→17:21)
[2021-05-02] MEDS: insulin lispro 100 unit/1 mL SUBCUT ×2 (08:42→17:18)
[2021-05-02] MEDS: sodium bicarbonate 8.4% 1 mEq/mL 50mL Syr 50 MEQ IVP (08:42)
[2021-05-02] MEDS: phosphorus 250 mg Tablet PO ×3 (08:43→17:21)
[2021-05-02] MEDS: insulin glargine 100 units/1 mL 20 UNIT SUBCUT (09:43)
--- NOTE | 2021-05-02 09:46 | PC.CHAP ---
Pastoral Care Encounter/Spiritual Assessment Type of Contact [] Declined cut out operator visit [] Patient/Family/Request visit [] Outpatient visit [] Follow-up visit [] Physician referral [] Code/Alert [x] Routine visit [] Staff referral [] Actively dying [] Patient sleeping [] Family support [] [] Out of room [] Palliative care [] [] Receiving care in room [] Pre-surgical visit [] Trauma [] Long length of stay [x] ICU visit [x] Other: covid Relational/Emotional Strength [] Patient feels connected with others/family/visitors/staff [] Distress [] Loneliness/isolation [] Abandonment Spirituality of Patient [] Person of Ayla [] Attends Yarsani of their Ayla [] Believes in Prayer [] Reads Bible or Jainism materials [] There are Spiritual issues to be addressed Shear Tender Interventions [x Prayer [] Active listening [] Non-anxious presence [] Spiritual/emotional support [] Crisis/trauma care [] Spiritual counseling [] Bereavement support [] Provided bereavement packet [] Provided Bible/devotional materials [] Provided toy/stuffed animal, coloring book to patient or family member [] Provided Communion [] Anointing/[place] [] Salvation [x] Completed spiritual assessment [] Other: Impact on Illness or Injury [] Angry [] Fearful [] Anxious [] Often cries [] Exhaustion [] Unable to work [] Unable to attend druze [] Unable to walk/stand [] Unable to read [] Unable to drive [] Unable to eat/drink [] Unable to sleep [] Unable to be with family [] Patient intubated [] Other: Summary Time spent with patient
[2021-05-02 11:37] LABS: Glucose Point of Care 133 mg/dL (70-110)
[2021-05-02 13:36] LABS: Coronavirus Test Green County Detected
--- NOTE | 2021-05-02 13:52 | PM.PN ---
Subjective Subjective: Interval history: Gap is almost closed, patient is tolerating his diet gave him 20 units of Lantus this a.m. we will start 30 units of Lantus at night which is his home regimen, patient has not taken Lantus for last 2 days because of poor appetite secondary to diarrhea Covid PCR is pending patient is saturating well on room air Bilateral infiltrate on x-ray Vitals/I&O/Wt Last Vital Signs Temp 97.9 F 05/01/21 23:50 Pulse 95 05/02/21 12:00 Resp 18 05/02/21 12:00 BP 127/77 05/02/21 12:00 Pulse Ox 98 05/01/21 23:50 05/01/21 05/02/21 05/02/21 22:59 06:59 14:59 Intake Total 1000 / 1000 1212.745 / 2212.745 611.343 / 611.343 Output Total 800 / 800 375 / 375 Balance 1000 / 1000 412.745 / 1412.745 236.343 / 236.343 Weight last 48 hrs Weight 75.41 kg Weight 81.647 kg Physical Exam Narrative: EXAM NARRATIVE: Patient is paraplegic Saturating well on room air S1, S2 Clinically does not look fluid overloaded or dehydrated Abdomen soft Nonfocal neuro exam Appropriate mood and affect Tolerating diet Data : 05/02/21 04:28 05/02/21 04:28 A&P Assessment and plan (1) Diarrhea: Status: Acute (2) DKA (diabetic ketoacidosis): Status: Acute Qualifiers: Diabetes mellitus complication detail: without coma Diabetes mellitus type: type 1 Qualified Code(s): E10.10 - Type 1 diabetes mellitus with ketoacidosis without coma (3) Suspected severe acute respiratory syndrome coronavirus 2 (SARS-CoV-2) infection: Status: Acute (4) HTN (hypertension): Status: Acute (5) Paraplegia: Status: Acute (6) Type I diabetes mellitus: Status: Acute Additional A&P Information DKA: Resolved transfer out of ICU, start sliding scale consistent carb diet continue LR at 100 mL/h Hypophosphatemia: Repleted Look for refeeding syndrome Check mag and phosphorus level Continue lisinopril for essential hypertension DVT prophylaxis Lovenox Patient does self intermittent catheterization at home Full code Consistent carb diet DVT prophylaxis Lovenox Saturating well on room air Covid PCR is pending, patient is not vaccinated Attestations Medical Necessity Statement*: continue med management possible dc gray Time Spent in Patient Care: 16 - 35 minutes Coding Level of Care Code Acute Natural Resources Manager for Chg Fwd Diagnoses Diarrhea R19.7 DKA (diabetic ketoacidosis) E10.10 Diabetes mellitus complication detail: without coma Diabetes mellitus type: type 1 Suspected severe acute respiratory syndrome coronavirus 2 (SARS-CoV-2) infection Z20.822 HTN (hypertension) I10 Paraplegia G82.20 Type I diabetes mellitus E10.9
[2021-05-02 17:17] LABS: Glucose Point of Care 195 mg/dL (70-110)
--- NOTE | 2021-05-02 17:45 | PC.NURSE ---
Shift Note Frequent safety and comfort rounds continue. Orders and nursing care completed as indicated. Insulin drip stopped this am at 0800 per physician's orders. Orders placed for sliding scale humalog and increased dose of lantus. Pt started on diet this am as well- Mr. Boudreaux didn't eat more than 25% of each meal today. Reports having trouble eating since having not ate in the last few days. Pt PCR Covid-19 test came back positive, pt and mother notified. Patient monitored for response to intervention and treatments. Education provided includes information on COVID-19, new medications, and frequent position changes due to high risk of pressure injury. Patient verbalized understanding. Will continue to monitor.
[2021-05-02 21:37] LABS: Glucose Point of Care 192 mg/dL (70-110)
[2021-05-02] MEDS: enoxaparin 40 mg/0.4 mL Syringe SUBCUT (21:52)
[2021-05-02] MEDS: insulin glargine 100 units/1 mL 30 UNIT SUBCUT (21:52)
[2021-05-02] MEDS: morphine 4 mg/mL SDV 1 mL IVP (23:06)
[2021-05-03] VITALS: BP 146/87; PULSE 83; RESP 17; TEMP 36.7; O2SAT 96
[2021-05-03 04:00] VITALS: BP 136/88; PULSE 76; RESP 18; TEMP 36.5; O2SAT 98
[2021-05-03] MEDS: lactated ringers 1,000 ML 100 ML IV (04:07)
[2021-05-03 06:01] LABS: Basophils % 0.4 %; Eosinophils # 0.1 10^3/uL (0.0-0.8); Eosinophils % 3.3 %; Hemoglobin 12.9 g/dL (11.7-16.6); Lymphocytes # 1.2 10^3/uL (0.8-4.8); Mean Corpuscular HGB Conc 34.9 g/dL (30.0-36.0); Mean Corpuscular Hemoglobin 31.9 pg (28.0-34.0); Mean Corpuscular Volume 91.6 fl (80-94); Mean Platelet Volume 10.3 fL (7.4-10.4); Monocytes # 0.3 10^3/uL (0.2-0.9); Neutrophils % 32.9 %; Nucleated Red Blood Cells % 0 %; Platelet Count 131 10^3/cmm (130-400); Red Blood Count 4.04 10^6/uL (4.1-5.3); Red Cell Distribution Width 12.9 % (12.1-15.1); White Blood Count 2.5 10^3/uL (4.0-10.0)
[2021-05-03 06:17] LABS: Anion Gap 12.1 (5-19); Blood Urea Nitrogen 8 mg/dL (6-20); Calcium 8.4 mg/dL (8.5-10.5); Carbon Dioxide 25 mmol/L (22-29); Chloride 107 mmol/L (98-107); Glomerular Filtration Rate 184.2 mL/min (90-130); Glucose 96 mg/dL (65-115); Osmolality Calculated 290 mOsm/kg (285-295); Potassium 3.1 mmol/L (3.5-5.1); Sodium 141 mmol/L (136-145)
[2021-05-03 06:42] LABS: Neutrophils # 0.81 10^3/uL (1.8-7.7)
[2021-05-03 06:43] LABS: Slide Review Slide Review Perform
[2021-05-03] MEDS: lisinopril 20 mg Tablet 40 MG PO (06:46)
[2021-05-03] MEDS: metoprolol succinate ER (24 HR) 50 mg Tablet PO (06:46)
[2021-05-03 06:48] LABS: Glucose Point of Care 85 mg/dL (70-110)
[2021-05-03 07:23] LABS: Glucose Point of Care 119 mg/dL (70-110)
[2021-05-03 07:46] LABS: C Reactive Protein 1.8 mg/L (0.0-4.9); Lactate Dehydrogenase 176 U/L (135-225)
[2021-05-03 07:56] VITALS: BP 125/82; PULSE 65; RESP 16; TEMP 36.5; O2SAT 97
[2021-05-03] MEDS: phosphorus 250 mg Tablet PO (09:00)
[2021-05-03] MEDS: potassium chloride ER 20 mEq Tablet 40 MEQ PO (09:00)
[2021-05-03] MEDS: lidocaine 1% 5 ML in potassium chloride premix 100 ML 25 ML IV (09:00)
--- NOTE | 2021-05-03 09:17 | P.DS_ITS ---
Discharge Providers Date of Admission: 05/02/21 00:05 Date of Discharge: May 03, 2021 Attending Provider at Admission: Eliezer Villalobos Attending Provider at Discharge: Jermain Puri MD Primary Care Provider: Sayra Kuo APN Diagnoses at Discharge Discharge Diagnosis (1) Diarrhea: Status: Acute (2) DKA (diabetic ketoacidosis): Status: Acute Qualifiers: Diabetes mellitus complication detail: without coma Diabetes mellitus type: type 1 Qualified Code(s): E10.10 - Type 1 diabetes mellitus with ketoacidosis without coma (3) Suspected severe acute respiratory syndrome coronavirus 2 (SARS-CoV-2) infection: Status: Acute (4) HTN (hypertension): Status: Acute (5) Paraplegia: Status: Acute (6) Type I diabetes mellitus: Status: Acute Reason for Visit Reason for Visit: covid expousre, feeling aweful Hospital Course Hospital Course 41-year-old male with history of type 1 diabetes takes Lantus 32 units at night sliding scale in the morning, paraplegia, hypertension presented to the hospital with chief complaint of worsening diarrhea. Patient was admitted for management of DKA secondary to not taking insulin at home. He did not take insulin to avoid eating to prevent diarrheal episodes. Patient symptoms started 12 days before his arrival in the ER. His symptoms consisted of profuse diarrhea he did not experience any fever, chest pain, shortness of breath. He is paraplegic and uses wheelchair for ambulation. He lives alone, drives his own car. Manages his insulin on his own. He was admitted for management of DKA he was given IV fluids, his DKA resolved within 12 hours, he was able to tolerate diet, he did not experience any diarrheal episodes in the hospital, his Covid PCR came back positive, on 05/03, this will be his 13th day from onset of symptoms. He is not requiring oxygen he is afebrile. Monoclonal antibody not given during hospitalization. Patient will be discharged home with a prescription of rescue inhaler. I have avoided giving him steroids because of recent DKA episode. Patient is agreement and he was counseled to quarantine for next 1 week as well. I will give him 5-day regimen of Levaquin because of his multiple comorbid conditions such as diabetes, active Covid infection and neutropenia Physical Exam Narrative: EXAM NARRATIVE: Patient is paraplegic Saturating well on room air S1, S2 Clinically does not look fluid overloaded or dehydrated Abdomen soft Nonfocal neuro exam Appropriate mood and affect Tolerating diet Discharge Data Data Completed and Pending: Completed Studies During Hospitalization Category Date Time Status CT angio chest PE protcl [id number] Urge nt Cat Scan 05/01/21 20:02 Completed XR chest 1V nathan ble [id number] Stat Exams 05/01/21 18:54 Completed Pending at discharge Category Date Time Status Phosphorus AM LAB S Lab 05/04/21 04:00 Ordered Labs from last 24 hours 05/03/21 05/03/21 05/03/21 07:20 06:46 05:15 WBC RBC Hgb Hct MCV MCH MCHC RDW Plt Count MPV Neut % (Auto) Lymph % (Auto) [place] % (Auto) Eos % (Auto) Baso % (Auto) Neut # (Auto) Lymph # (Auto) [place] # (Auto) Eos # (Auto) Baso # (Auto) Nucleated RBC % (a uto) Nucleated RBCs # Sodium Potassium Chloride Carbon Dioxide Anion Gap BUN Creatinine GFR Calculation Glucose POC Glucose 119 H 85 Calculated Osmolal ity Calcium Lactate Dehydrogen ase 176 C-Reactive Protein 1.8 Nasal/Oral COVID-1 9 PCR 05/03/21 05/03/21 05/02/21 05:15 05:15 21:32 WBC 2.5 L RBC 4.04 L Hgb 12.9 Hct 37.0 L MCV 91.6 MCH 31.9 MCHC 34.9 RDW 12.9 Plt Count 131 MPV 10.3 Neut % (Auto) 32.9 Lymph % (Auto) 50.0 [place] % (Auto) 13.0 Eos % (Auto) 3.3 Baso % (Auto) 0.4 Neut # (Auto) 0.81 L* Lymph # (Auto) 1.2 [place] # (Auto) 0.3 Eos # (Auto) 0.1 Baso # (Auto) 0.0 Nucleated RBC % (a uto) 0 Nucleated RBCs # 0.0 Sodium 141 Potassium 3.1 L Chloride 107 Carbon Dioxide 25 Anion Gap 12.1 BUN 8 Creatinine 0.5 L GFR Calculation 184.2 H Glucose 96 POC Glucose 192 H Calculated Osmolal ity 290 Calcium 8.4 L Lactate Dehydrogen ase C-Reactive Protein Nasal/Oral COVID-1 9 PCR 05/02/21 05/02/21 05/01/21 17:08 11:32 21:25 WBC RBC Hgb Hct MCV MCH MCHC RDW Plt Count MPV Neut % (Auto) Lymph % (Auto) [place] % (Auto) Eos % (Auto) Baso % (Auto) Neut # (Auto) Lymph # (Auto) [place] # (Auto) Eos # (Auto) Baso # (Auto) Nucleated RBC % (a uto) Nucleated RBCs # Sodium Potassium Chloride Carbon Dioxide Anion Gap BUN Creatinine GFR Calculation Glucose POC Glucose 195 H 133 H Calculated Osmolal ity Calcium Lactate Dehydrogen ase C-Reactive Protein Nasal/Oral COVID-1 9 PCR Detected H Vitals: Last Vital Signs Temp 97.7 F 05/03/21 07:56 Pulse 65 05/03/21 07:56 Resp 16 05/03/21 07:56 BP 125/82 05/03/21 07:56 Pulse Ox 97 05/03/21 07:56 Discharge Plan Discharge Patient Disposition: Home Condition: Stable Prescriptions: New albuterol sulfate 90 mcg/actuation HFA aerosol inhaler 2 inh inhalation 6XD PRN (Reason: shortness of breath or wheezing) Qty: 8.5 RF: 1 levofloxacin 750 mg tablet 750 mg PO DAILY 5 Days Qty: 5 RF: 0 Zinc (with A and C) Lozenges Lozenge 1 tami PO Q2H Qty: 100 RF: 0 Continued (DME) Glucocard Vital Test Strips Strip MISCELLANEOUS RF: 0 insulin lispro [Humalog U-100 Insulin] 100 unit/mL solution See Rx Instructions .ROUTE .COMPLEX RF: 0 metoprolol succinate 50 mg tablet extended release 24 hr 50 mg PO QAM RF: 0 ibuprofen 200 mg Tablet 400 mg PO Q4H PRN (Reason: Pain) RF: 0 lisinopril 40 mg tablet 40 mg PO QAM RF: 0 Lantus U-100 Insulin 100 unit/mL solution 30 unit SUBCUT QPM 30 Days Qty: 100 RF: 4 Discharge Orders: Discharge Order (Routine); Ordered 05/03/21 Ordered By: Jermain Puri Discharge Diet: Diabetic Discharge Activity: Wheelchair as instructed Patient Instructions: COVID-19 (Coronavirus Disease 2019) (DC), Opioid Safety Discharge Attestations Time Spent in Discharge Care*: less than 30 min Quality Metrics Clinical Quality Measures During this hospital stay, did patient experience: None Coding Level of Care Code Acute Chg FW DC note Diagnoses Diarrhea R19.7 DKA (diabetic ketoacidosis) E10.10 Diabetes mellitus complication detail: without coma Diabetes mellitus type: type 1 Suspected severe acute respiratory syndrome coronavirus 2 (SARS-CoV-2) infection Z20.822 HTN (hypertension) I10 Paraplegia G82.20 Type I diabetes mellitus E10.9
[2021-05-03 11:25] LABS: Glucose Point of Care 223 mg/dL (70-110)
[2021-05-03 11:28] VITALS: BP 143/90; PULSE 73; RESP 16; TEMP 36.7; O2SAT 97
[2021-05-03] MEDS: insulin lispro 100 unit/1 mL SUBCUT (11:36)
[2021-05-03 11:52] VITALS: BP 143/90; PULSE 73; RESP 16; TEMP 36.7; O2SAT 97
== END 2021-05-03 12:59 | disposition home or self-care (01) ==
LOC: ER 22:13 → ICU 23:13 → MEDSURG 05-03 06:49 → ICU 05-09 16:19
PROVIDERS: Physician Assistant; Admitting Provider Internal Medicine; Emergency Provider Emergency Medicine; PCP Nurse Practitioner Family; Visit Provider Internal Medicine
DX: E10.10 Type 1 diabetes mellitus with ketoacidosis without coma (principal); R19.7 Diarrhea, unspecified; I10 Essential (primary) hypertension; E83.39 Other disorders of phosphorus metabolism; G82.20 Paraplegia, unspecified; Z20.822 Contact with and (suspected) exposure to COVID-19; Z79.4 Long term (current) use of insulin
CPT/HCPCS: 36415; 36416; 36600; 71045; 71275; 80048; 80051; 80053; 80069; 82009; 82330; 82550; 82805; 82962; 83036; 83605; 83615; 83735; 84145; 85025; 85378; 86140; 87426; 87635; 93005; 96365; 96372; 96375; 99285; G0378; J1650; J1815 ×2; J2270; J2405; J3480; J7030; J7050; Q9967

== ENCOUNTER 2024-10-14 09:23 | Outpatient (CLI) | payer MEDICARE, SELFPAY ==
--- NOTE | 2024-10-14 09:34 | XR_ITS ---
WS: [id number] Exam: XR hip LT 2-3V wo/w pel* [id number] Date/Time of Exam: 10/14/2024 9:46 AM Reason For Exam: PERSONAL HX OF HEALED TRAUMATIC FX Comparison 10/28/2014. 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 The fracture is chronically displaced. Intramedullary cassidy partially noted in the upper LEFT femur. Lateral soft tissue calcification. Advanced narrowing of the LEFT hip joint with near [id number]. Surgical clips in the LEFT inguinal region. Moderate DJD of the RIGHT hip. Colostomy is stoma superimposes the LEFT iliac bone. XR/XR hip LT 2-3V wo/w pel* [id number] IMPRESSION: 1. 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 Intramedullary cassidy in the visualized femur bridging a healed fractu re involving the upper third of the femur. 2. Advanced degenerative change of the LEFT hip joint. Other chronic findings a s above.
== END 2024-10-14 09:24 | disposition home or self-care (01) ==
PROVIDERS: PCP Nurse Practitioner Family; Visit Provider Nurse Practitioner Family
DX: Z87.81 Personal history of (healed) traumatic fracture (principal); S72.042 Displaced fracture of base of neck of left femur; X58.XXXD Exposure to other specified factors, subsequent encounter; M16.12 Unilateral primary osteoarthritis, left hip; M79.89 Other specified soft tissue disorders; M16.11 Unilateral primary osteoarthritis, right hip; Z98.890 Other specified postprocedural states; R93.89 Abnormal findings on diagnostic imaging of other specified body structures
CPT/HCPCS: 73502

== ENCOUNTER 2025-03-16 16:37 | Outpatient (CLI) | payer MEDICARE, SELFPAY ==
[2025-03-16 17:56] LABS: Hematocrit 22.7 % (37-53); Hemoglobin 6.70 g/dL (11.27-16.99); Mean Corpuscular HGB Conc 29.5 g/dL (30-55); Mean Corpuscular Hemoglobin 24.9 pg (27-33); Mean Corpuscular Volume 84.4 fl (82-101); Nucleated Red Blood Cells % 0 %; Platelet Count 385 10^3/cmm (157-399); Red Blood Count 2.69 10^6/uL (3.85-5.65); White Blood Count 5.81 10^3/uL (3.29-11.43)
[2025-03-16 18:47] LABS: Alanine Aminotransferase 11 U/L (0-41); Albumin Level 2.2 g/dL (3.5-5.2); Alkaline Phosphatase 125 U/L (40-130); Anion Gap 17.4 (5-19); Aspartate Amino Transferase 15 U/L (0-40); Blood Urea Nitrogen 9 mg/dL (6-20); Calcium 7.9 mg/dL (8.5-10.5); Carbon Dioxide 25 mmol/L (22-29); Chloride 92 mmol/L (98-107); Globulin 3.6 g/dL (1.3-4.6); Glucose 99 mg/dL (65-115); Iron 18 ug/dL (59-158); Osmolality Calculated 273 mOsm/kg (285-295); Sodium 132 mmol/L (136-145); Total Iron Binding Capacity 93 mcg/dl; Total Protein 5.8 g/dL (6.6-8.7); Unsaturated Iron Binding 75 ug/dL (112-347)
[2025-03-16 19:19] LABS: Ferritin 1055 ng/mL (30-400)
[2025-03-16 19:27] LABS: Potassium 2.4 mmol/L (3.5-5.1)
== END 2025-03-16 16:38 | disposition home or self-care (01) ==
PROVIDERS: PCP Nurse Practitioner Family; Visit Provider Nurse Practitioner Family
DX: E61.1 Iron deficiency (principal); L89.314 Pressure ulcer of right buttock, stage 4
CPT/HCPCS: 80053; 82728; 83540; 83550; 85025

== ENCOUNTER 2025-04-07 12:59 | Outpatient (CLI) | payer MEDICARE, SELFPAY ==
[2025-04-07 13:54] LABS: Hematocrit 25.4 % (37-53); Hemoglobin 7.70 g/dL (11.27-16.99); Mean Corpuscular HGB Conc 30.3 g/dL (30-55); Mean Corpuscular Hemoglobin 27.1 pg (27-33); Mean Corpuscular Volume 89.4 fl (82-101); Nucleated Red Blood Cells % 0 %; Platelet Count 393 10^3/cmm (157-399); Red Blood Count 2.84 10^6/uL (3.85-5.65); White Blood Count 5.56 10^3/uL (3.29-11.43)
[2025-04-07 14:14] LABS: Anion Gap 14.6 (5-19); Blood Urea Nitrogen 8 mg/dL (6-20); Calcium 7.3 mg/dL (8.5-10.5); Carbon Dioxide 27 mmol/L (22-29); Chloride 97 mmol/L (98-107); Glucose 112 mg/dL (65-115); Osmolality Calculated 281 mOsm/kg (285-295); Sodium 136 mmol/L (136-145)
[2025-04-07 14:18] LABS: Potassium 2.6 mmol/L (3.5-5.1)
== END 2025-04-07 13:00 | disposition home or self-care (01) ==
PROVIDERS: PCP Nurse Practitioner Family
DX: L89.314 Pressure ulcer of right buttock, stage 4 (principal)
CPT/HCPCS: 80048; 85025

== ENCOUNTER 2025-04-07 18:18 | Emergency (ER) | payer MEDICARE, SELFPAY ==
[2025-04-07 18:19] VITALS: BP 114/70; PULSE 132; RESP 18; TEMP 37.4; O2SAT 98
--- NOTE | 2025-04-07 18:24 | ECG_ITS ---
[facility] Date: 2025-04-07 Pat Name: Carl Boudreaux Department: Room: Gender: Male Commercial Leasing Manager: : 1980 Requested By: Fabiola Dean Order Number: [id number] Signh MD: Matteo Arenas M.D. Measurements Intervals [place] Rate: 126 P: 23 OR: 104 QRS: 15 QRSD: 75 T: 64 QT: 338 QTc: 490 Interpretive Statements SINUS TACHYCARDIA WITH SHORT OR INTERVAL NONSPECIFIC T-WAVE ABNORMALITY Compared to ECG 05/01/2021 20:35:54 Short OR interval now present Atrial abnormality no longer present T-wave abnormality still present Electronically Signed On 04-08-2025 16:53:25 CDT by Matteo Arenas M.D. [email or web address]
--- OUTSIDE RECORDS SUMMARY | 2025-04-07 18:24 | XMS_ITS | Encounter Summary ---
Author Organization [facility] Address [address] [place] [address] Care Team Providers Care Pole Lift Operator Name Role Phone Son Adames MD Primary Care Provider [phone] Encounter Details Date Type Department Care Team (Latest Contact Info) Description 04/15/2003 Outpatient Historical [facility] Orthopedics- [address] [place] [id number] Jon Mcmullen MD NO ADDRESS ON FILE AFT CARE HEAL TRAUM FRAC UPPER LEG (Primary Dx) Social History Tobacco Use Types Packs/Day Years Used Date Smoking Tobacco: Never Assessed Sex and Gender Information Value Date Recorded Sex Assigned at Not on file Legal Sex Male 6:13 AM WAN SUPPORT SPECIALIST Gender Identity Not on file Sexual Orientation Not on file documented as of this encounter Plan of Treatment Not on file documented as of this encounter Visit Diagnoses Diagnosis Aftercare for healing traumatic fracture of upper leg- Primary documented in this encounter Care Teams Pole Lift Operator Relationship Specialty Start Date End Date Son Adames MD [address] [place] [address] PCP - General Family Practice 01/08/13 documented as of this encounter
--- OUTSIDE RECORDS SUMMARY | 2025-04-07 18:24 | XMS_ITS | Encounter Summary ---
Author Organization [facility] Address [address] [place] [address] Care Team Providers Care Rfid Manager Name Role Phone Son Adames MD Primary Care Provider [phone] Encounter Details Date Type Department Care Team (Latest Contact Info) Description 06/09/2003 Outpatient Historical [facility] Ear, Nose and Throat [address] [place] [address] [place] [phone] Toro Baez MD NO ADDRESS ON FILE VOICE DISTURBANCE NEC (Primary Dx); VOCAL CORD PARALYSIS NOS Social History Tobacco Use Types Packs/Day Years Used Date Smoking Tobacco: Never Assessed Sex and Gender Information Value Date Recorded Sex Assigned at Not on file Legal Sex Male 6:13 AM REGISTERED DIETETIC TECHNICIAN Gender Identity Not on file Sexual Orientation Not on file documented as of this encounter Plan of Treatment Not on file documented as of this encounter Visit Diagnoses Diagnosis Other voice and resonance disorders- Primary Paralysis of vocal cords or larynx, unspecified documented in this encounter Care Teams Rfid Manager Relationship Specialty Start Date End Date Son Adames MD [address] [place] [address] PCP - General Family Practice 01/08/13 documented as of this encounter
--- OUTSIDE RECORDS SUMMARY | 2025-04-07 18:24 | XMS_ITS | Encounter Summary ---
Author Organization [facility] Address [address] [place] [address] Care Team Providers Care Web Manager Name Role Phone Son Adames MD Primary Care Provider [phone] Encounter Details Date Type Department Care Team (Latest Contact Info) Description 02/16/2003 Outpatient Historical [facility] [address] [place] [phone] Jose R Amin MD [address] [phone] INJURY THORACIC AORTA (Primary Dx) Social History Tobacco Use Types Packs/Day Years Used Date Smoking Tobacco: Never Assessed Sex and Gender Information Value Date Recorded Sex Assigned at Not on file 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
--- OUTSIDE RECORDS SUMMARY | 2025-04-07 18:24 | XMS_ITS | Encounter Summary ---
Author Organization [facility] Address [address] [place] [address] Care Team Providers Care Generator Repairer Name Role Phone Son Adames MD Primary Care Provider [phone] Encounter Details Date Type Department Care Team (Latest Contact Info) Description 05/06/[address] 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
--- OUTSIDE RECORDS SUMMARY | 2025-04-07 18:24 | XMS_ITS | Encounter Summary ---
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
--- OUTSIDE RECORDS SUMMARY | 2025-04-07 18:24 | XMS_ITS | Encounter Summary ---
Author Organization [facility] Address [address] [place] [address] Care Team Providers Care Lot Attendant Name Role Phone Son Adames MD Primary Care Provider [phone] Encounter Details Date Type Department Care Team (Latest Contact Info) Description 11/06/2003 Outpatient Historical [facility] Ear, Nose and Throat 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
--- OUTSIDE RECORDS SUMMARY | 2025-04-07 18:24 | XMS_ITS | Clinical Summary ---
Author Organization [facility] Address [address] [address] Phone Care Team Providers Care Tier Truck Driver Name Role Phone Son Adames MD Primary Care Provider [phone] Allergies No known active allergies Medications insulin glargine (LANTUS) 100 unit/mL subCUT Soln Inject 36 Units by subcutaneous injection daily at bedtime. Active insulin aspart (NOVOLOG) 100 unit/mL Injection Soln Inject 10 Units by subcutaneous injection 2 times daily. Active lisinopril (PRINIVIL) 5 mg Oral tablet Take 5 mg by mouth daily. 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 Gender Identity Not on file Sexual Orientation Not on file Occupation Industry Job Start Date Job End Date Not on file Not on file Not on file Not on file Last Filed Vital Signs Vital Sign Reading Time Taken Comments Blood Pressure 150/76 01/08/2013 8:15 PM CDT Pulse 116 01/08/2013 8:15 PM CDT Temperature 39.1 C (102.4 F) 01/08/2013 8:15 PM CDT Respiratory Rate 20 01/08/2013 8:15 PM CDT Oxygen Saturation 96% 01/08/2013 8:15 PM CDT Inhaled Oxygen Concentration - - Weight 81.6 kg (180 lb) 01/08/2013 8:15 PM CDT Height 172.7 cm (5' 8 ) 01/08/2013 8:15 PM CDT Body Mass Index 27.37 01/08/2013 8:15 PM CDT Plan of Treatment Health Maintenance Due Date Last Done Comments DTAP/TDAP/TD VACCINES (1 - Tdap) 2000 HEPATITIS B VACCINES (1 of 3 - 19+ 3-dose series) 02/24 HPV VACCINES (1 - 3-dose SCDM series) 2008 INFLUENZA VACCINE (#1) 2025 Insurance MEDICARE PART A AND B Care Teams Tier Truck Driver Relationship Specialty Start Date End Date Son Adames MD [address] [place] [address] PCP - General Family Practice 01/08/13
--- OUTSIDE RECORDS SUMMARY | 2025-04-07 18:24 | XMS_ITS | Encounter Summary ---
Author Organization [facility] Address [address] [place] [address] Care Team Providers Care Circuit Board Assembler Name Role Phone Son Adames MD Primary Care Provider [phone] Encounter Details Date Type Department Care Team (Latest Contact Info) Description 02/24/2003 Outpatient Historical [facility] General and Trauma Surgery-[address] [place] [address] Mat Wadsworth MD [address] [place] [address] [address] [place] [address] SURGERY FOLLOWUP, UNSPEC (Primary Dx) Social History Tobacco Use Types Packs/Day Years Used Date Smoking Tobacco: Never Assessed Sex and Gender Information Value Date Recorded Sex Assigned at Not on file 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
--- OUTSIDE RECORDS SUMMARY | 2025-04-07 18:24 | XMS_ITS | Encounter Summary ---
Author Organization [facility] Address [address] [place] [address] Care Team Providers Care Rope Laying Machine Operator Name Role Phone Son Adames MD Primary Care Provider [phone] Encounter Details Date Type Department Care Team (Late st Contact Info) Description 03/21/2003 Emergency [facility] Emergency Department [address] [place] [phone] [place], NO ADDRESS ON FILE ABDOMINAL PAIN UNSPEC SITE (Primary Dx) Social History Tobacco Use Types Packs/Day Years Used Date Smoking Tobacco: Never Assessed Sex and Gender Information Value Date Recorded Sex Assigned at Not on file Legal Sex Male 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
--- OUTSIDE RECORDS SUMMARY | 2025-04-07 18:24 | XMS_ITS | Encounter Summary ---
Author Organization [facility] Address [address] [place] [address] Care Team Providers Care Staff Toxicologist Name Role Phone Son Adames MD Primary Care Provider Encounter Details Date Type Department Care Team (Latest Contact Info) Description 03/05/2003 Outpatient Historical [facility] Physical Med and Rehab[address] [phone] Renard Yu MD [address] [place] [address] PARAPLEGIA NOS (CMS/HCC) (Primary Dx) Social History Tobacco Use Types Packs/Day Years Used Date Smoking Tobacco: Never Assessed Sex and Gender Information Value Date Recorded Sex Assigned at Not on file 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
--- OUTSIDE RECORDS SUMMARY | 2025-04-07 18:24 | XMS_ITS | Encounter Summary ---
Author Organization [facility] Address [address] [place] [address] Care Team Providers Care Process Maintenance Technician Name Role Phone Son Adames MD Primary Care Provider [phone] Encounter Details Date Type Department Care Team (Latest Contact Info) Description 02/16/2003 Outpatient Historical [facility] Cardiac Thoracic Vascular Surg [place] [address] [place] [phone] Jose R Amin MD [address] [phone] Injury thoracic aorta (Primary Dx) Social History Tobacco Use Types Packs/Day Years Used Date Smoking Tobacco: Never Assessed Sex and Gender Information Value Date Recorded Sex Assigned at Not on file 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
--- OUTSIDE RECORDS SUMMARY | 2025-04-07 18:24 | XMS_ITS | Encounter Summary ---
Author Organization [facility] Address [address] [place] [address] Care Team Providers Care Poultry Hatchery Man Name Role Phone Son Adames MD Primary Care Provider [phone] Encounter Details Date Type Department Care Team (Latest Contact Info) Description 12/31/2002 Inpatient Historical [facility] Emergency Department [address] [place] [address] Mat Wadsworth MD [address] [address] INJURY THORACIC AORTA (Primary Dx) Social History Tobacco Use Types Packs/Day Years Used Date Smoking Tobacco: Never Assessed Sex and Gender Information Value Date Recorded Sex Assigned at Not on file 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
--- OUTSIDE RECORDS SUMMARY | 2025-04-07 18:24 | XMS_ITS | Encounter Summary ---
Author Organization [facility] Address [address] [place] [address] Care Team Providers Care Office Professionals Name Role Phone Son Adames MD Primary Care Provider [phone] Encounter Details Date Type Department Care Team (Latest Contact Info) Description 04/16/2003 Outpatient Historical [facility] [address] [place] [phone] Renard Yu MD [address] [place] [address] PARAPLEGIA NOS (CMS/HCC) (Primary Dx); DECUBITUS ULCER Social History Tobacco Use Types Packs/Day Years Used Date Smoking Tobacco: Never Assessed Sex and Gender Information Value Date Recorded Sex Assigned at Not on file 

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
--- OUTSIDE RECORDS SUMMARY | 2025-04-07 18:24 | XMS_ITS | Encounter Summary ---
Author Organization [facility] Address [address] [place] [address] Care Team Providers Care Customer Service Sales Consultant Name Role Phone Son Adames MD Primary Care Provider [phone] Encounter Details Date Type Department Care Team (Late st Contact Info) Description 10/06/2002 Outpatient Historical [facility] Family Medicine [address] 

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
--- NOTE | 2025-04-07 19:34 | ED_ITS ---
HPI - Recheck/Abnormal Lab/Rx 2 General: Chief Complaint: Recheck/Abnormal Lab/Rx Stated Complaint: Pot Low Time Seen by Provider: 04/07/25 19:09 History of Present Illness: Patient is a 45-year-old gentleman with stage IV sacral right decub, paraplegia times over 20 years, DM, reports to the ED with abnormal lab. He was told his potassium was low at 2.6. Patient states he has had increasing fatigue. Denied palpitations despite his heart rate 120s?130s. Low-grade fever in triage of 99.3. Denies any cough, fever, chills. Major report is fatigue, and only fatigue. He did feel like his blood glucose was starting to go down. Onset/Timin Description of abnormal result: Potassium 2.6. Related Data Home Medications ?Medication ?Instructions ?Recorded ?Confirmed blood sugar diagnostic (Glucocard 05/02/21 05/02/21 Vital Test Strips) ibuprofen 200 mg tablet 400 mg PO Q4H PRN Pain 05/0205/02/21 insulin lispro 100 unit/mL See Rx Instructions .Route .COMPLEX 05/02/21 05/02/21 subcutaneous solution (Humalog U-100 Insulin) lisinopril 40 mg tablet 40 mg PO QAM 05/02/21 metoprolol succinate 50 mg 50 mg PO QAM 05/02/2105/02 tablet,extended release 24 hr Previous Rx's ?Medication ?Instructions ?Recorded albuterol sulfate 90 mcg/actuation 2 inh inhalation 6X D PRN shortness 05/03/21 aerosol inhaler of breath or wheezing #8.5 g alena insulin glargine 100 unit/mL 30 unit (0.3 mL) SUBCUT Q PM 30 05/03/21 subcutaneous solution (Lantus days #100 mL U-100 Insulin) magnesium 30 mg tablet 30 mg PO BID #10 tabs potassium chloride 20 mEq 20 meq PO DAILY #5 tabs 03/15 tablet,extended release(part/cryst) vit A-vit [id number]-[id number] lozenges 1 tami PO Q2H #100 e a 05/03/21 (Zinc (with Vitamins A and C) Lozenges) cefdinir 300 mg capsule 300 mg PO BID 10 days #20 ca ps 04/07/25 Allergies Allergy/AdvReac Type Severity Reaction Status Date / Time No Known Allergies Allergy Verified 05/02/21 09:13 Review of Systems 2 General: Reports: 10 or more systems reviewed and unremarkable except in HPI and below Const: Reports: fatigue and malaise; Denies: fever(s) or chills ENMT: Denies: throat pain or nasal congestion Card: Denies: chest pain or palpitations Resp: Denies: dyspnea or non-productive cough GI: Reports: other (Diverting colostomy, less output) : Denies: flank pain or difficulty urinating Musc: Reports: joint swelling (chronic), limited range of motion and other (Stage IV decub sacral bilateral); Denies: neck pain, back pain, extremity pain, extremity swelling or joint pain Neuro: Denies: headache(s) or numbness in extremities Psych: Denies: anxiety or depression PFSH ED 2 PFSH: Medical History (Updated 04/07/25 @ 23:15 by JAGJIT Owens) Aortic arch dissection Physical Exam 2 Const: COMMON NORMALS: no acute distress, patient oriented x3, no limitations and alert GENERAL APPEARANCE: cooperative ORIENTATION/CONSCIOUSNESS: Yes awake, Yes oriented to person, Yes oriented to place and Yes oriented to time HENMT: COMMON NORMALS: normocephalic and atraumatic HEAD & SCALP: n ormocephalic and atraumatic Eye: COMMON NORMALS: Equal, round and reactive pupils present and EOMs intact bilaterally PUPIL: Yes Equal, round and reactive pupils present Lymph: LYMPHATIC: no lymphadenopathy noted Resp: COMMON NORMALS: normal respiratory effort and clear to auscultation bilaterally AUSCULTATION: clear to auscultation bilaterally Cardio: COMMON NORMALS: regular rhythm RATE: tachycardic RHYTHM: regular rhythm GI: COMMON NORMALS: Normal to inspection, nondistended, normoactive bowel sounds present, Soft to palpation, non-tender and No hepatosplenomegaly present PALPATION: Yes Soft to palpation and Yes No hepatosplenomegaly present O THER: Diverting colostomy : COMMON NORMALS: Yes no CVA tenderness BLADDER/KIDNEY EXAM: Yes no CVA tenderness Back/Pelvis: COMMON NORMALS: no CVA tenderness Extremity: NARRATIVE EXTREMITY EXAM: Chronic paraplegia GENERAL: Yes normal exam except as noted and Yes edema (+3) Neuro: OSVALDO COMA SCALE: document GCS findings Newberry coma scale eye opening: Spontaneous [place]berry coma scale verbal response: Orientated Newberry coma scale motor response: Obey commands Newberry coma scale total score: 15 COMMON NORMALS: patient oriented x3 SENSORIUM/ORIENTATION: Yes alert, Yes oriented to person, Yes oriented to place and Yes oriented to time OTHER: LE paraplegic Skin: NARRATIVE SKIN EXAM: Sacral decub wound stage IV draining clear serous without smell TRAUMA: no lacerations or abrasions Course 2 Vital Signs: Vital signs: Vital Signs Temperature 99.3 F 04/07/25 18:19 Pulse Rate 92 04/08/25 00:15 Respiratory Rate 14 04/08/25 00:15 Blood Pressure 107/65 04/08/25 00:15 Pulse Oximetry 97 04/08/25 00:15 Oxygen Delivery Me thod Room Air 04/08/25 00:15 MDM - Recheck/Abnormal Lab/Rx Medical Decision Making Repeat potassium is 3.1. Magnesium is still infusing. Suspect this will go up as well. Patient does not have elevation of WBC, however CRP is quite elevated with his known stage IV sacral decub. This is treated by [facility]. I have encouraged him to call in a.m. for quick follow-up. Patient states understanding. Additionally, patient had mild pyuria with urine WBC of 21-50. Urine culture is pending. Will treat for UTI in interim. Medical Records I reviewed the patient's medical records. Lab Data I reviewed the patient's lab results. 04/07/25 19:50 04/07/25 22:17 Laboratory Results WBC 5.91 10^3/uL (3.29-11.43) 04/07/25 19:50 RBC 2.68 10^6/uL (3.85-5.65) L 04/07/25 19:50 Hgb 7.20 g/dL (11.27-16.99) L 04/07/25 19:50 Hct 23.1 % (37-53) L 04/07/25 19:50 MCV 86.2 fl (82-101) 04/07/25 19:50 MCH 26.9 pg (27-33) L 04/07/25 19:50 MCHC 31.2 g/dL (30-55) 04/07/25 19:50 RDW 18.6 % (12.1-15.1) H 04/07/25 19:50 Plt Count 339 10^3/cmm (157-399) 04/07/25 19:50 MPV 8.5 fL (7.4-10.4) 04/07/25 19:50 Neut % (Auto) 59.8 % 04/07/25 19:50 Lymph % (Auto) 30.1 % 04/07/25 19:50 [place] % (Auto) 8.6 % 04/07/25 19:50 Eos % (Auto) 0.8 % 04/07/25 19:50 Baso % (Auto) 0.2 % 04/07/25 19:50 Neut # (Auto) 3.53 10^3/uL (1.8-7.7) 04/07/25 19:50 Lymph # (Auto) 1.8 10^3/uL (0.8-4.8) 04/07/25 19:50 [place] # (Auto) 0.5 10^3/uL (0.2-0.9) 04/07/25 19:50 Eos # (Auto) 0.1 10^3/uL (0.0-0.8) 04/07/25 19:50 Baso # (Auto) 0.0 10^3/uL (0.0-0.1) 04/07/25 19:50 Nucleated RBC % (auto) 0 % 04/07/25 19:50 Nucleated RBCs # 0.0 /100WBC 04/07/25 19:50 Sodium 131 mmol/L (136-145) L 04/07/25 19:50 Potassium 3.1 mmol/L (3.5-5.1) L 04/07/25 22:17 Chloride 95 mmol/L (98-107) L 04/07/25 19:50 Carbon Dioxide 24 mmol/L (22-29) 04/07/25 19:50 Anion Gap 14.5 (5-19) 04/07/25 19:50 BUN 7 mg/dL (6-20) 04/07/25 19:50 Creatinine 0.4 mg/dL (0.7-1.2) L 04/07/25 19:50 GFR Calculation 233.7 mL/min (90-130) H 04/07/25 19:50 Glucose 67 mg/dL (65-115) 04/07/25 19:50 Calculated Osmolality 268 mOsm/kg (285-295) L 04/07/25 19:50 Lactic Acid 1.4 mmol/L (0.5-2.2) 04/07/25 19:50 Calcium 7.3 mg/dL (8.5-10.5) L 04/07/25 19:50 Magnesium 1.6 mg/dL (1.7-2.3) L 04/07/25 19:50 Total Bilirubin 0.2 mg/dL (0.15-1.2) 04/07/25 19:50 AST 7 U/L (0-40) 04/07/25 19:50 ALT < 5 U/L (0-41) 04/07/25 19:50 Alkaline Phosphatase 85 U/L (40-130) 04/07/25 19:50 C-Reactive Protein 151.2 mg/L (0.0-4.9) H 04/07/25 19:50 Total Protein 4.9 g/dL (6.6-8.7) L 04/07/25 19:50 Albumin 1.9 g/dL (3.5-5.2) L 04/07/25 19:50 Globulin 3.0 g/dL (1.3-4.6) 04/07/25 19:50 TSH 2.61 uIU/mL (0.27-4.20) 04/07/25 19:50 Urine Color Dark yellow (Yellow) A 04/07/25 21:30 Urine Appearance Cloudy (CLEAR) A 04/07/25 21:30 Urine pH 5.5 (5-7) 04/07/25 21:30 Ur Specific [place] 1.027 (1.005-1.030) 04/07/25: Urine Protein 1+ (Negative) A 04/07/25: Urine Glucose (UA) 2+ (Normal) H 04/07/25 21: Urine Ketones Trace (Negative) 04/07/25 21: Urine Blood Negative (Negative) 04/07/25 21: Urine Nitrate Negative (Negative) 04/07/25 21: Urine Bilirubin Negative (Negative) 04/07/25: Urine Urobilinogen 1.0 mg/dL (Negative) 04/07/25 21:30 Ur Leukocyte Esterase 1+ (Negative) A 04/07/25 21:30 Urine RBC 0-2 /hpf (0-2) 04/07/25 21:30 Urine WBC 21-50 /hpf (0-5) H 04/07/25 21:30 Ur Squamous Epith Cells 0-5 /hpf (0-5) 04/07/25 21:30 Amorphous Sediment Not Reportable 04/07/25 21:30 Urine Bacteria 4+ /hpf (NONE) H 04/07/25 21:30 Hyaline Casts 2.87 /lpf 04/07/25 21:30 Urine Opiates Screen Negative ng/mL (Negative) 04/07/25 21:30 Ur Barbiturates Screen Negative ng/mL (Negative) 04/07/25 21:30 Ur Phencyclidine Scrn Negative ng/mL (Negative) 04/07/25 21:30 Ur Amphetamines Screen Negative ng/mL (Negative) 04/07/25 21:30 U Benzodiazepines Scrn Negative ng/mL (Negative) 04/07/25 21:30 Urine Cocaine Screen Negative ng/mL (Negative) 04/07/25 21:30 U Marijuana (THC) Screen Negative ng/mL (Negative) 04/07/25 21:30 No radiology studies performed this visit Discharge Plan Discharge Patient Disposition: Home Clinical Impression: Hypokalemia, Pyuria Condition: Stable Prescriptions: New cefdinir 300 mg capsule 300 mg PO BID 10 Days Qty: 20 0RF No Action (DME) Glucocard Vital Test Strips Strip MISCELLANEOUS insulin lispro [Humalog U-100 Insulin] 100 unit/mL solution See Rx Instructions .ROUTE .COMPLEX Rx Instructions: sliding scale (normally uses 10 units) tid before meals metoprolol succinate 50 mg tablet extended release 24 hr 50 mg PO QAM ibuprofen 200 mg Tablet 400 mg PO Q4H PRN (Reason: Pain) lisinopril 40 mg tablet 40 mg PO QAM albuterol sulfate 90 mcg/actuation HFA aerosol inhaler 2 inh inhalation 6XD PRN (Reason: shortness of breath or wheezing) Qty: 8.5 1RF Zinc (with A and C) Lozenges Lozenge 1 tami PO Q2H Qty: 100 0RF Lantus U-100 Insulin 100 unit/mL solution 30 unit SUBCUT QPM 30 Days Qty: 100 4RF potassium chloride 20 mEq tablet,ER particles/crystals 20 meq PO DAILY Qty: 5 0RF magnesium 30 mg tablet 30 mg PO BID Qty: 10 0RF Discharge Orders: Discharge ED (Routine); Ordered 04/07/25 Ordered By: Fabiola Dean Referrals: Machelle Kuo FNP [Primary Care Provider, Nurse Practitioner] Discharge Diet: As Directed Discharge Activity: Resume usual activity Patient Instructions: Urinary Tract Infection in Men (ED), Hypokalemia (ED), Patient Portal & Leidy Instructions Activity Restrictions/Additional Instructions: - Call your doctor in [place] tomorrow for follow-up - Repeat your labs tomorrow with home health - Eat foods rich in potassium - Urine culture is pending. In the interim, antibiotics have been sent to the pharmacy. Continue her antibiotics, obtain early in the morning and start. You will need a probiotic, or active culture yogurt daily to avoid infectious diarrhea. Thank you for choosing [facility] for your healthcare needs today. You have been screened and evaluated and felt safe for discharge. Health conditions do change or evolve sometimes and as such it is important that you follow up with your Primary Doctor to be re checked, 3-5 days is a general good time frame for follow up. You are always welcome to return to the ED for re assessment if your symptoms are worsening or you have new concerns Print Language: Telugu Coding Level of Care Code ED Flue [employer] Laborer for Sidney Porter
[2025-04-07 19:55] VITALS: BP 116/69; PULSE 116; RESP 18; O2SAT 97
[2025-04-07 20:17] LABS: Hematocrit 23.1 % (37-53); Hemoglobin 7.20 g/dL (11.27-16.99); Mean Corpuscular HGB Conc 31.2 g/dL (30-55); Mean Corpuscular Hemoglobin 26.9 pg (27-33); Mean Corpuscular Volume 86.2 fl (82-101); Nucleated Red Blood Cells % 0 %; Platelet Count 339 10^3/cmm (157-399); Red Blood Count 2.68 10^6/uL (3.85-5.65); White Blood Count 5.91 10^3/uL (3.29-11.43)
[2025-04-07 20:35] LABS: Lactic Sepsis W/Reflex 1.4 mmol/L (0.5-2.2)
[2025-04-07 20:48] LABS: Alanine Aminotransferase < 5 U/L (0-41); Albumin Level 1.9 g/dL (3.5-5.2); Alkaline Phosphatase 85 U/L (40-130); Anion Gap 14.5 (5-19); Aspartate Amino Transferase 7 U/L (0-40); Blood Urea Nitrogen 7 mg/dL (6-20); Calcium 7.3 mg/dL (8.5-10.5); Carbon Dioxide 24 mmol/L (22-29); Chloride 95 mmol/L (98-107); Creatinine Clr Calc Pharmacy 239.6147; Globulin 3.0 g/dL (1.3-4.6); Glucose 67 mg/dL (65-115); Magnesium 1.6 mg/dL (1.7-2.3); Osmolality Calculated 268 mOsm/kg (285-295); Slide Review Slide Review Perform; Sodium 131 mmol/L (136-145); Thyroid Stimulating Hormone 2.61 uIU/mL (0.27-4.20); Total Protein 4.9 g/dL (6.6-8.7)
[2025-04-07 20:50] LABS: Potassium 2.5 mmol/L (3.5-5.1)
[2025-04-07 20:51] VITALS: BP 103/61; RESP 16; O2SAT 96
[2025-04-07 21:34] VITALS: BP 118/72; PULSE 110; RESP 18; O2SAT 99
[2025-04-07 21:43] LABS: Glucose Urine UA 2+ (Normal); Nitrate Urine Negative (Negative); Specific Gravity, Urine 1.027 (1.005-1.030)
[2025-04-07 21:48] LABS: Add Urine Microscopic? YES
[2025-04-07 21:50] LABS: PCP Screen Urine Negative (Negative)
[2025-04-07] MEDS: magnesium sulfate premix 4 GM/100 ML PREMIX IV (21:55)
[2025-04-07] MEDS: potassium chloride premix 100 ML 25 MEQ IV (21:55)
[2025-04-07 22:44] LABS: Potassium 3.1 mmol/L (3.5-5.1)
[2025-04-07] MEDS: cefTRIAXone 1,000 mg SDV 1000 MG IVP (23:36)
[2025-04-08 00:15] VITALS: BP 107/65; PULSE 92; RESP 14; O2SAT 97
[2025-04-08 02:39] VITALS: BP 98/68; PULSE 93; RESP 16; O2SAT 97
--- NOTE | 2025-04-10 17:04 | PC.NURSE ---
given critical urine results and advised staff to contact pt to see PCP or return to ED. Contacted patient regarding urine results. Informed patient to return to ED for antibiotic treatment or to call PCP in the morning. Pt verbalized understanding.
== END 2025-04-08 02:44 | disposition home or self-care (01) ==
PROVIDERS: Emergency Provider Physician Assistant; PCP Nurse Practitioner Family
DX: E87.6 Hypokalemia (principal); R82.81 Pyuria; Z79.4 Long term (current) use of insulin
CPT/HCPCS: 36415; 80053; 80306; 81001; 83605; 83735; 84132; 84443; 85025; 86140; 87040; 87077; 87086; 87186; 93005; 96374; 96375; 99285; J0696; J3475; J3480; J7120; J9999

== ENCOUNTER 2025-04-23 12:35 | Outpatient (CLI) | payer MEDICARE, SELFPAY ==
[2025-04-23 12:53] LABS: Hematocrit 31.2 % (37-53); Hemoglobin 9.10 g/dL (11.27-16.99); Mean Corpuscular HGB Conc 29.2 g/dL (30-55); Mean Corpuscular Hemoglobin 27.2 pg (27-33); Mean Corpuscular Volume 93.4 fl (82-101); Nucleated Red Blood Cells % 0 %; Platelet Count 318 10^3/cmm (157-399); Red Blood Count 3.34 10^6/uL (3.85-5.65); White Blood Count 6.23 10^3/uL (3.29-11.43)
[2025-04-23 13:26] LABS: Anion Gap 11.7 (5-19); Blood Urea Nitrogen 14 mg/dL (6-20); Calcium 8.0 mg/dL (8.5-10.5); Carbon Dioxide 28 mmol/L (22-29); Chloride 102 mmol/L (98-107); Glucose 140 mg/dL (65-115); Osmolality Calculated 289 mOsm/kg (285-295); Potassium 3.7 mmol/L (3.5-5.1); Sodium 138 mmol/L (136-145)
== END 2025-04-23 12:36 | disposition home or self-care (01) ==
LOC: LAB 12:36
PROVIDERS: PCP Nurse Practitioner Family; Visit Provider Nurse Practitioner Family
DX: L89.314 Pressure ulcer of right buttock, stage 4 (principal)
CPT/HCPCS: 80048; 80202; 85025

== ENCOUNTER 2025-04-27 10:05 | Outpatient (CLI) | payer MEDICARE, SELFPAY ==
[2025-04-27 10:45] LABS: Hematocrit 30.0 % (37-53); Hemoglobin 9.10 g/dL (11.27-16.99); Mean Corpuscular HGB Conc 30.3 g/dL (30-55); Mean Corpuscular Hemoglobin 28.2 pg (27-33); Mean Corpuscular Volume 92.9 fl (82-101); Nucleated Red Blood Cells % 0 %; Platelet Count 309 10^3/cmm (157-399); Red Blood Count 3.23 10^6/uL (3.85-5.65); White Blood Count 5.22 10^3/uL (3.29-11.43)
[2025-04-27 11:09] LABS: Alanine Aminotransferase 10 U/L (0-41); Albumin Level 2.2 g/dL (3.5-5.2); Alkaline Phosphatase 152 U/L (40-130); Aspartate Amino Transferase 13 U/L (0-40); Blood Urea Nitrogen 7 mg/dL (6-20); Calcium 7.5 mg/dL (8.5-10.5); Carbon Dioxide 27 mmol/L (22-29); Chloride 104 mmol/L (98-107); Globulin 2.2 g/dL (1.3-4.6); Glucose 187 mg/dL (65-115); Osmolality Calculated 289 mOsm/kg (285-295); Sodium 138 mmol/L (136-145); Total Protein 4.4 g/dL (6.6-8.7)
[2025-04-27 11:11] LABS: Anion Gap 11.2 (5-19); Potassium 4.2 mmol/L (3.5-5.1)
== END 2025-04-27 10:06 | disposition home or self-care (01) ==
PROVIDERS: PCP Nurse Practitioner Family; Visit Provider Emergency Medicine
DX: L89.314 Pressure ulcer of right buttock, stage 4 (principal); A41.9 Sepsis, unspecified organism; D64.9 Anemia, unspecified; Z79.2 Long term (current) use of antibiotics
CPT/HCPCS: 80048; 80076; 80202; 85025

== ENCOUNTER 2025-05-01 10:36 | Outpatient (CLI) | payer MEDICARE, SELFPAY ==
[2025-05-01 11:14] LABS: Hematocrit 33.2 % (37-53); Hemoglobin 9.80 g/dL (11.27-16.99); Mean Corpuscular HGB Conc 29.5 g/dL (30-55); Mean Corpuscular Hemoglobin 26.8 pg (27-33); Mean Corpuscular Volume 90.7 fl (82-101); Nucleated Red Blood Cells % 0 %; Platelet Count 363 10^3/cmm (157-399); Red Blood Count 3.66 10^6/uL (3.85-5.65); White Blood Count 5.12 10^3/uL (3.29-11.43)
[2025-05-01 11:52] LABS: Alanine Aminotransferase 11 U/L (0-41); Albumin Level 2.5 g/dL (3.5-5.2); Alkaline Phosphatase 177 U/L (40-130); Anion Gap 14.9 (5-19); Aspartate Amino Transferase 15 U/L (0-40); Blood Urea Nitrogen 6 mg/dL (6-20); Calcium 7.7 mg/dL (8.5-10.5); Carbon Dioxide 26 mmol/L (22-29); Chloride 103 mmol/L (98-107); Globulin 2.3 g/dL (1.3-4.6); Glucose 189 mg/dL (65-115); Osmolality Calculated 293 mOsm/kg (285-295); Potassium 3.9 mmol/L (3.5-5.1); Sodium 140 mmol/L (136-145); Total Protein 4.8 g/dL (6.6-8.7)
== END 2025-05-01 10:37 | disposition home or self-care (01) ==
LOC: LAB 10:36
PROVIDERS: PCP Nurse Practitioner Family; Visit Provider Emergency Medicine
DX: L89.314 Pressure ulcer of right buttock, stage 4 (principal); A41.9 Sepsis, unspecified organism
CPT/HCPCS: 80048; 80076; 80202; 85025

== ENCOUNTER 2025-05-04 10:20 | Outpatient (CLI) | payer MEDICARE, SELFPAY ==
[2025-05-04 11:30] LABS: Hematocrit 30.6 % (37-53); Hemoglobin 9.00 g/dL (11.27-16.99); Mean Corpuscular HGB Conc 29.4 g/dL (30-55); Mean Corpuscular Hemoglobin 26.6 pg (27-33); Mean Corpuscular Volume 90.5 fl (82-101); Nucleated Red Blood Cells % 0 %; Platelet Count 319 10^3/cmm (157-399); Red Blood Count 3.38 10^6/uL (3.85-5.65); White Blood Count 5.32 10^3/uL (3.29-11.43)
[2025-05-04 11:53] LABS: Alanine Aminotransferase 8 U/L (0-41); Albumin Level 2.2 g/dL (3.5-5.2); Alkaline Phosphatase 161 U/L (40-130); Anion Gap 14.1 (5-19); Aspartate Amino Transferase 9 U/L (0-40); Blood Urea Nitrogen 6 mg/dL (6-20); Calcium 7.7 mg/dL (8.5-10.5); Carbon Dioxide 25 mmol/L (22-29); Chloride 107 mmol/L (98-107); Globulin 2.0 g/dL (1.3-4.6); Glucose 68 mg/dL (65-115); Osmolality Calculated 290 mOsm/kg (285-295); Potassium 4.1 mmol/L (3.5-5.1); Sodium 142 mmol/L (136-145); Total Protein 4.2 g/dL (6.6-8.7)
== END 2025-05-04 10:21 | disposition home or self-care (01) ==
PROVIDERS: PCP Nurse Practitioner Family; Visit Provider Emergency Medicine
DX: L89.314 Pressure ulcer of right buttock, stage 4 (principal); A41.9 Sepsis, unspecified organism
CPT/HCPCS: 80048; 80076; 80202; 85025

== ENCOUNTER 2025-05-08 11:22 | Outpatient (CLI) | payer MEDICARE, SELFPAY ==
[2025-05-08 11:38] LABS: Hematocrit 29.3 % (37-53); Hemoglobin 8.60 g/dL (11.27-16.99); Mean Corpuscular HGB Conc 29.4 g/dL (30-55); Mean Corpuscular Hemoglobin 26.5 pg (27-33); Mean Corpuscular Volume 90.2 fl (82-101); Nucleated Red Blood Cells % 0 %; Platelet Count 288 10^3/cmm (157-399); Red Blood Count 3.25 10^6/uL (3.85-5.65); White Blood Count 4.65 10^3/uL (3.29-11.43)
[2025-05-08 12:01] LABS: Alanine Aminotransferase 7 U/L (0-41); Albumin Level 2.1 g/dL (3.5-5.2); Alkaline Phosphatase 134 U/L (40-130); Anion Gap 12.8 (5-19); Aspartate Amino Transferase 10 U/L (0-40); Blood Urea Nitrogen 8 mg/dL (6-20); Calcium 7.8 mg/dL (8.5-10.5); Carbon Dioxide 27 mmol/L (22-29); Chloride 108 mmol/L (98-107); Globulin 2.2 g/dL (1.3-4.6); Glucose 48 mg/dL (65-115); Osmolality Calculated 294 mOsm/kg (285-295); Potassium 3.8 mmol/L (3.5-5.1); Sodium 144 mmol/L (136-145); Total Protein 4.3 g/dL (6.6-8.7)
== END 2025-05-08 11:23 | disposition home or self-care (01) ==
PROVIDERS: PCP Nurse Practitioner Family; Visit Provider Emergency Medicine
DX: Z01.89 Encounter for other specified special examinations (principal)
CPT/HCPCS: 80048; 80076; 80202; 85025

== ENCOUNTER 2025-05-11 10:09 | Outpatient (CLI) | payer MEDICARE, SELFPAY ==
[2025-05-11 10:39] LABS: Hematocrit 34.5 % (37-53); Hemoglobin 10.10 g/dL (11.27-16.99); Mean Corpuscular HGB Conc 29.3 g/dL (30-55); Mean Corpuscular Hemoglobin 26.4 pg (27-33); Mean Corpuscular Volume 90.1 fl (82-101); Nucleated Red Blood Cells % 0 %; Platelet Count 318 10^3/cmm (157-399); Red Blood Count 3.83 10^6/uL (3.85-5.65); White Blood Count 5.35 10^3/uL (3.29-11.43)
[2025-05-11 11:02] LABS: Alanine Aminotransferase 8 U/L (0-41); Albumin Level 2.6 g/dL (3.5-5.2); Alkaline Phosphatase 148 U/L (40-130); Anion Gap 11.4 (5-19); Aspartate Amino Transferase 12 U/L (0-40); Blood Urea Nitrogen 10 mg/dL (6-20); Calcium 8.4 mg/dL (8.5-10.5); Carbon Dioxide 29 mmol/L (22-29); Chloride 103 mmol/L (98-107); Globulin 3.0 g/dL (1.3-4.6); Glucose 59 mg/dL (65-115); Osmolality Calculated 287 mOsm/kg (285-295); Potassium 3.4 mmol/L (3.5-5.1); Sodium 140 mmol/L (136-145); Total Protein 5.6 g/dL (6.6-8.7)
== END 2025-05-11 10:10 | disposition home or self-care (01) ==
LOC: LAB 10:10
PROVIDERS: PCP Nurse Practitioner Family; Visit Provider Emergency Medicine
DX: A41.9 Sepsis, unspecified organism (principal); M72.6 Necrotizing fasciitis; L89.314 Pressure ulcer of right buttock, stage 4
CPT/HCPCS: 80048; 80076; 80202; 85025; 85651; 86140

== ENCOUNTER 2025-05-15 12:15 | Outpatient (CLI) | payer MEDICARE, SELFPAY ==
[2025-05-15 12:46] LABS: Hematocrit 33.0 % (37-53); Hemoglobin 9.80 g/dL (11.27-16.99); Mean Corpuscular HGB Conc 29.7 g/dL (30-55); Mean Corpuscular Hemoglobin 26.9 pg (27-33); Mean Corpuscular Volume 90.7 fl (82-101); Nucleated Red Blood Cells % 0 %; Platelet Count 288 10^3/cmm (157-399); Red Blood Count 3.64 10^6/uL (3.85-5.65); White Blood Count 6.35 10^3/uL (3.29-11.43)
[2025-05-15 13:07] LABS: Alanine Aminotransferase 7 U/L (0-41); Albumin Level 2.5 g/dL (3.5-5.2); Alkaline Phosphatase 143 U/L (40-130); Anion Gap 15.7 (5-19); Aspartate Amino Transferase 10 U/L (0-40); Blood Urea Nitrogen 10 mg/dL (6-20); Calcium 8.1 mg/dL (8.5-10.5); Carbon Dioxide 25 mmol/L (22-29); Chloride 99 mmol/L (98-107); Globulin 2.6 g/dL (1.3-4.6); Glucose 317 mg/dL (65-115); Osmolality Calculated 293 mOsm/kg (285-295); Potassium 3.7 mmol/L (3.5-5.1); Sodium 136 mmol/L (136-145); Total Protein 5.1 g/dL (6.6-8.7)
== END 2025-05-15 12:16 | disposition home or self-care (01) ==
PROVIDERS: PCP Nurse Practitioner Family; Visit Provider Emergency Medicine
DX: L89.314 Pressure ulcer of right buttock, stage 4 (principal); A41.9 Sepsis, unspecified organism
CPT/HCPCS: 80048; 80076; 80202; 85025; 85651; 86140

== ENCOUNTER 2025-05-18 13:42 | Outpatient (CLI) | payer MEDICARE, SELFPAY ==
[2025-05-18 14:20] LABS: Hematocrit 34.9 % (37-53); Hemoglobin 10.30 g/dL (11.27-16.99); Mean Corpuscular HGB Conc 29.5 g/dL (30-55); Mean Corpuscular Hemoglobin 26.5 pg (27-33); Mean Corpuscular Volume 89.7 fl (82-101); Nucleated Red Blood Cells % 0 %; Platelet Count 306 10^3/cmm (157-399); Red Blood Count 3.89 10^6/uL (3.85-5.65); White Blood Count 5.36 10^3/uL (3.29-11.43)
[2025-05-18 14:50] LABS: Alanine Aminotransferase 11 U/L (0-41); Albumin Level 2.6 g/dL (3.5-5.2); Alkaline Phosphatase 189 U/L (40-130); Anion Gap 12.4 (5-19); Aspartate Amino Transferase 15 U/L (0-40); Blood Urea Nitrogen 11 mg/dL (6-20); Calcium 8.1 mg/dL (8.5-10.5); Carbon Dioxide 27 mmol/L (22-29); Chloride 103 mmol/L (98-107); Globulin 2.9 g/dL (1.3-4.6); Glucose 418 mg/dL (65-115); Osmolality Calculated 305 mOsm/kg (285-295); Potassium 3.4 mmol/L (3.5-5.1); Sodium 139 mmol/L (136-145); Total Protein 5.5 g/dL (6.6-8.7)
== END 2025-05-18 13:43 | disposition home or self-care (01) ==
LOC: LAB 13:44
PROVIDERS: PCP Nurse Practitioner Family; Visit Provider Emergency Medicine
DX: L89.314 Pressure ulcer of right buttock, stage 4 (principal); A41.9 Sepsis, unspecified organism
CPT/HCPCS: 80048; 80076; 80202; 85025; 85651; 86140

== ENCOUNTER 2025-05-22 12:43 | Outpatient (CLI) | payer MEDICARE, SELFPAY ==
[2025-05-22 13:16] LABS: Anion Gap 12.4 (5-19); Blood Urea Nitrogen 10 mg/dL (6-20); Calcium 7.8 mg/dL (8.5-10.5); Carbon Dioxide 26 mmol/L (22-29); Chloride 104 mmol/L (98-107); Glucose 58 mg/dL (65-115); Osmolality Calculated 285 mOsm/kg (285-295); Potassium 3.4 mmol/L (3.5-5.1); Sodium 139 mmol/L (136-145)
== END 2025-05-22 12:44 | disposition home or self-care (01) ==
PROVIDERS: PCP Nurse Practitioner Family; Visit Provider Emergency Medicine
DX: L89.314 Pressure ulcer of right buttock, stage 4 (principal); A41.9 Sepsis, unspecified organism
CPT/HCPCS: 80048; 80202

== ENCOUNTER 2025-05-25 10:59 | Outpatient (CLI) | payer MEDICARE, SELFPAY ==
[2025-05-25 11:30] LABS: Hematocrit 35.3 % (37-53); Hemoglobin 10.70 g/dL (11.27-16.99); Mean Corpuscular HGB Conc 30.3 g/dL (30-55); Mean Corpuscular Hemoglobin 26.2 pg (27-33); Mean Corpuscular Volume 86.5 fl (82-101); Nucleated Red Blood Cells % 0 %; Platelet Count 335 10^3/cmm (157-399); Red Blood Count 4.08 10^6/uL (3.85-5.65); White Blood Count 6.84 10^3/uL (3.29-11.43)
[2025-05-25 11:53] LABS: Alanine Aminotransferase 7 U/L (0-41); Albumin Level 2.6 g/dL (3.5-5.2); Alkaline Phosphatase 147 U/L (40-130); Anion Gap 12.5 (5-19); Aspartate Amino Transferase 9 U/L (0-40); Blood Urea Nitrogen 8 mg/dL (6-20); Calcium 8.2 mg/dL (8.5-10.5); Carbon Dioxide 28 mmol/L (22-29); Chloride 105 mmol/L (98-107); Globulin 1.9 g/dL (1.3-4.6); Glucose 66 mg/dL (65-115); Osmolality Calculated 291 mOsm/kg (285-295); Potassium 3.5 mmol/L (3.5-5.1); Sodium 142 mmol/L (136-145); Total Protein 4.5 g/dL (6.6-8.7)
== END 2025-05-25 11:00 | disposition home or self-care (01) ==
LOC: LAB 11:00
PROVIDERS: PCP Nurse Practitioner Family; Visit Provider Emergency Medicine
DX: L89.314 Pressure ulcer of right buttock, stage 4 (principal); A41.9 Sepsis, unspecified organism
CPT/HCPCS: 80048; 80076; 80202; 85025

== ENCOUNTER 2025-05-29 10:42 | Outpatient (CLI) | payer MEDICARE, SELFPAY ==
[2025-05-29 11:32] LABS: Anion Gap 10.9 (5-19); Blood Urea Nitrogen 6 mg/dL (6-20); Calcium 7.6 mg/dL (8.5-10.5); Carbon Dioxide 29 mmol/L (22-29); Chloride 104 mmol/L (98-107); Glucose 46 mg/dL (65-115); Osmolality Calculated 287 mOsm/kg (285-295); Sodium 141 mmol/L (136-145)
[2025-05-29 11:42] LABS: Potassium 2.9 mmol/L (3.5-5.1)
== END 2025-05-29 10:43 | disposition home or self-care (01) ==
LOC: LAB 10:45
PROVIDERS: PCP Nurse Practitioner Family; Visit Provider Emergency Medicine
DX: M72.6 Necrotizing fasciitis (principal); L89.314 Pressure ulcer of right buttock, stage 4; A41.51 Sepsis due to Escherichia coli [E. coli]
CPT/HCPCS: 80048; 80202

== ENCOUNTER 2025-06-01 11:20 | Outpatient (CLI) | payer MEDICARE, SELFPAY ==
[2025-06-01 11:46] LABS: Hematocrit 40.5 % (37-53); Hemoglobin 11.90 g/dL (11.27-16.99); Mean Corpuscular HGB Conc 29.4 g/dL (30-55); Mean Corpuscular Hemoglobin 25.8 pg (27-33); Mean Corpuscular Volume 87.7 fl (82-101); Nucleated Red Blood Cells % 0 %; Platelet Count 356 10^3/cmm (157-399); Red Blood Count 4.62 10^6/uL (3.85-5.65); White Blood Count 6.64 10^3/uL (3.29-11.43)
[2025-06-01 11:54] LABS: Glucose Urine UA Negative (Normal); Nitrate Urine Negative (Negative); Specific Gravity, Urine 1.008 (1.005-1.030)
[2025-06-01 12:00] LABS: Add Urine Microscopic? YES
[2025-06-01 12:18] LABS: Alanine Aminotransferase 8 U/L (0-41); Albumin Level 2.8 g/dL (3.5-5.2); Alkaline Phosphatase 211 U/L (40-130); Anion Gap 10.5 (5-19); Aspartate Amino Transferase 18 U/L (0-40); Blood Urea Nitrogen 6 mg/dL (6-20); Calcium 8.2 mg/dL (8.5-10.5); Carbon Dioxide 31 mmol/L (22-29); Chloride 104 mmol/L (98-107); Globulin 2.2 g/dL (1.3-4.6); Glucose 100 mg/dL (65-115); Osmolality Calculated 292 mOsm/kg (285-295); Potassium 3.5 mmol/L (3.5-5.1); Sodium 142 mmol/L (136-145); Total Protein 5.0 g/dL (6.6-8.7)
[2025-06-01 12:57] LABS: UA Slide Review UA Slide Review Perf
== END 2025-06-01 11:21 | disposition home or self-care (01) ==
LOC: LAB 11:20
PROVIDERS: PCP Nurse Practitioner Family; Visit Provider Emergency Medicine
DX: T83.511A Infection and inflammatory reaction due to indwelling urethral catheter, initial encounter (principal); X58.XXXA Exposure to other specified factors, initial encounter
CPT/HCPCS: 80048; 80076; 80202; 81001; 85025; 87086

== ENCOUNTER 2025-06-03 09:27 | Outpatient (CLI) | payer MEDICARE, SELFPAY ==
[2025-06-03 10:32] LABS: Anion Gap 9.0 (5-19); Carbon Dioxide 30 mmol/L (22-29); Chloride 106 mmol/L (98-107); Glucose 44 mg/dL (65-115); Potassium 3.0 mmol/L (3.5-5.1); Sodium 142 mmol/L (136-145)
[2025-06-03 10:50] LABS: Blood Urea Nitrogen 11 mg/dL (6-20); Calcium 7.9 mg/dL (8.5-10.5); Osmolality Calculated 290 mOsm/kg (285-295)
== END 2025-06-03 09:28 | disposition home or self-care (01) ==
LOC: LAB 09:27
PROVIDERS: PCP Nurse Practitioner Family; Visit Provider Emergency Medicine
DX: L89.314 Pressure ulcer of right buttock, stage 4 (principal); A41.9 Sepsis, unspecified organism
CPT/HCPCS: 80048